=== PATIENT | male | born 1950 | race Caucasian/White ===

== ENCOUNTER 2020-01-22 16:36 | Inpatient (IN) | payer MEDICARE ==
[~2020-01-22] VITALS: Ht 177.8 cm; Wt 112.8 kg
[2020-01-22] VITALS (7 sets, daily range): BP systolic 148–248; BP diastolic 66–116
[~2020-01-22 16:36] MED LIST: AMLO10TA4 PO; AMLO5TAB4 PO; ASPI-482 PO; CLOP75TA57 PO; CYAN10002 IM; DILT120T4 PO; METO-247 PO; METO-269 PO; METO50TA6 PO; OMEG1CAP38 PO; OMEG300C PO; ONDA4TAB10 SL; OXYC1TAB15 PO; PANT20TA2 PO; PANT40TA77 PO; PRAV40TA2 PO; RIVA10TA PO; RIVA20TA2 PO; TAMS0.4C97 PO; VIT1CAPS44 PO
[2020-01-22] MEDS ORDERED: HEPARIN 25,000UTS/250ML PREMIX 250 ML IV PRN ×2 (17:00→17:30)
[2020-01-22] MEDS ORDERED: fentaNYL PF VIAL 100 MCG/2 ML VIAL IVP PRN (17:00)
[2020-01-22] MEDS ORDERED: HEPARIN for IV BOLUS 10,000 UNIT/10 ML VIAL. IV PRN ×2 (17:00→17:30)
[2020-01-22] MEDS ORDERED: HYDR12.58 PO (17:13)
[2020-01-22] MEDS ORDERED: METOPROLOL SUCC 24HR ER 100 MG TAB.ER.24H. PO SCH (17:30)
[2020-01-22] MEDS: hydroCHLOROthiazide 25 MG TABLET PO SCH (17:41)
[2020-01-22] MEDS: PANTOPRAZOLE 40 MG TABLET.DR. PO SCH (17:41)
[2020-01-22] MEDS: METOPROLOL SUCC 24HR ER 100 MG TAB.ER.24H. PO SCH (17:42)
[2020-01-22 17:48] LABS: PROTHROMBIN TIME PATIENT 13.8 SEC (11.7-14.0)
[2020-01-22] MEDS: NITROGLYCERIN PREMIX 250 ML IV PRN (18:13)
[2020-01-22] MEDS: ACETAMINOPHEN 325 MG TABLET. PO PRN (20:00)
[2020-01-22] MEDS: MORPHINE SULFATE 2 MG/ML VIAL. IV PRN ×2 (20:00→22:35)
[2020-01-22] MEDS ORDERED: FUROSEMIDE 40 MG/4 ML VIAL. IVP ONE (20:00)
[2020-01-22] MEDS: ALBUTEROL SULFATE 2.5 MG/3 ML NEBU. NEB PRN (21:28)
--- NOTE | 2020-01-22 22:42 | NUR ---
1900 Patient is experiencing 10/10 midsternal chest pain and 8/10 headache. Morphine given per JUL, relief to 4/10 chest pain. pt on nitro gtt, titrating to keep systolic below 150. will continue to monitor.
[2020-01-23] VITALS (18 sets, daily range): BP systolic 96–171; BP diastolic 45–80
[2020-01-23] MEDS ORDERED: HEPARIN for IV BOLUS 10,000 UNIT/10 ML VIAL. IV PRN (01:15)
[2020-01-23] MEDS ORDERED: HEPARIN 25,000UTS/250ML PREMIX 250 ML IV PRN (01:15)
[2020-01-23] MEDS: MORPHINE SULFATE 2 MG/ML VIAL. IV PRN ×7 (01:21→22:57)
[2020-01-23] MEDS: ALBUTEROL SULFATE 2.5 MG/3 ML NEBU. NEB PRN ×5 (01:53→20:05)
[2020-01-23] MEDS: ACETAMINOPHEN 325 MG TABLET. PO PRN (07:26)
[2020-01-23] MEDS: ANTI-COAG MONITOR BY PHARMACY. MC PRN (07:37)
[2020-01-23 07:49] LABS: HEMATOCRIT 27.4 % (39.0-53.0); HEMOGLOBIN 9.3 g/dL (13.0-17.5); RED BLOOD COUNT 2.45 x10^6/uL (4.30-5.70); RED CELL DISTRIBUTION WIDTH 14.6 % (11.5-14.5)
[2020-01-23 08:24] LABS: CALCIUM 8.4 mg/dL (8.5-10.1); CHOLESTEROL/HDL RATIO 3.6; CREATININE 2.1 mg/dL (0.7-1.3); GFR 31.7; POTASSIUM 3.8 mmol/L (3.5-5.1)
[2020-01-23] MEDS: hydroCHLOROthiazide 25 MG TABLET PO SCH (09:00)
[2020-01-23] MEDS: METOPROLOL SUCC 24HR ER 100 MG TAB.ER.24H. PO SCH (09:43)
[2020-01-23] MEDS: PANTOPRAZOLE 40 MG TABLET.DR. PO SCH (09:44)
--- NOTE | 2020-01-23 10:12 | HP ---
ADMIT DATE: HISTORY OF PRESENT ILLNESS: The patient is a 69-year-old male patient who was brought to the Emergency Room of [facility]. He actually came to the Emergency by his own private vehicle complaining of chest pain. According to him, his symptoms of weakness started about 6 months ago. He was very weak and tired, lack of energy about 4-5 days, had bronchitis and on Friday started having chest pain, mostly substernal that radiates to his right upper extremity. He stated that he has some nausea, but no vomiting. He is short of breath and diaphoretic. He rated his pain about 9/10 in severity. The pain has been constant. He apparently has had extensive cardiac history including coronary artery disease with stent deployment, atrial fibrillation as well as pacemaker placement. He did complain of dyspnea on exertion and orthopnea as well as paroxysmal nocturnal dyspnea and increased lower extremity swelling. He was basically extensively investigated in the Emergency Room, has had an EKG, which showed that the patient was in atrial fibrillation with a ventricular rate of 164 beats per minute, corrected QT interval of 408, no axis deviation, T-wave inversion in leads aVR and aVL, but no ST segment elevation. His portable chest x-ray showed that the patient has mild cardiomegaly, sided cardiac pacer identified. Faint airspace opacities identified in the basilar region consistent with atelectasis versus infiltrate. His lab work showed that his white cell count was normal at 8100, hemoglobin 10, hematocrit 30, MCV was extremely high at 116; however, platelets are extremely low at 41,000. His chemistry showed a serum sodium 135, potassium 4.3, chloride 102, bicarbonate 18, anion gap of 15, BUN of 42, creatinine 2, estimated GFR was 33 mL per minute, his glucose 131, calcium was 9, magnesium was 1.2. Total bilirubin, AST, ALT, alkaline phosphatase were normal. His first set of cardiac enzymes showed troponin to be 1.936. His beta natriuretic peptide was 4678. Total protein was 8.4, albumin was 3.5 and lipase was 226. TSH 1.506. The patient was at [facility] Emergency Room for a long time. His second troponin has risen up to 2.894 and the patient was started on heparin drip and eventually a bed became available and was transferred to [facility] to consult the medical reviewer. PAST MEDICAL HISTORY: Significant for hypertension, hyperlipidemia, paroxysmal atrial fibrillation, coronary artery disease, status post PCI with stent deployment to the left anterior descending artery, sick sinus syndrome, status post permanent pacemaker placement, has a history of DVT and PE, status post IVC filter. He is known to have factor V Leiden, syncopal episode, gastritis, esophagitis, hemorrhoids, GI bleed, TIA and superficial gastric ulcer. PAST SURGICAL HISTORY: Significant for permanent pacemaker placement, IVC filter placement and PCI with stent deployment, cholecystectomy, and left knee arthroscopic surgery. FAMILY HISTORY: Significant for hypertension, abdominal aortic aneurysm in his father and lung cancer in his mother. SOCIAL HISTORY: He is . He quit smoking about 3 years ago. Does not drink alcohol or use any drugs. 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 REVIEW OF SYSTEMS: As per history of present illness. PHYSICAL EXAMINATION: GENERAL: On arrival to the Emergency Room, he was somewhat tachypneic, but there was no pallor, jaundice, cyanosis or thyromegaly. No jugular venous distention, but bilateral lower extremity edema. VITAL SIGNS: His heart rate was 112, blood pressure was 180/95, his temperature was 98.1, respiratory rate 22, and oxygen saturation was 98% on room air. HEAD, EYES, EARS, NOSE AND THROAT: Showed normocephalic, atraumatic. NECK: Supple. HEART: Showed normal first and second heart sounds. No gallop, rub or murmur. CHEST: Shows central trachea, equal bilateral expansion, air entry, vesicular sounds with bilateral basal crepitation. ABDOMEN: Distended, soft, nontender. No guarding or rigidity. No organomegaly. All hernial orifices intact. Bowel sounds normal. NEUROLOGIC: He was awake, alert, responding appropriately. All cranial nerves intact. EXTREMITIES: He moves extremities without difficulty. LABORATORY DATA: His lab work in the Emergency Room showed the white cell count of 8100, hemoglobin 10, hematocrit 30, MCV 116, and a platelet count of 41,000. His serum sodium was 135, potassium 4.3, chloride 102, bicarbonate 18, anion gap of 15, BUN of 42, creatinine 2, estimated GFR was 33 mL per minute, his glucose 131, calcium was 9, magnesium was 1.2. Total bilirubin, AST, ALT, alkaline phosphatase were normal. His first troponin was 1.936. Second troponin was 2.894. His BNP was 4678. Total protein was 8.4, albumin was 3.5. Lipase was 226 and TSH was 1.506. PLAN: The patient was treated, started on heparin drip. His magnesium was also replenished and was transferred to [facility] to consult the cardiology team. We will obviously continue all his other medications and decide on further management accordingly. KOSTA BRAVO MD DR: FLORY/jm JOB#: [id number] / [id number]
--- NOTE | 2020-01-23 10:44 | EKG ---
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
--- NOTE | 2020-01-23 11:27 | PN ---
DATE: 01/23/2020 SUBJECTIVE: The patient is resting, almost flat in bed, in no apparent distress. His main complaint this morning was headache because of nitroglycerin drip. He denied any more chest pain; however, he is already on nitroglycerin drip and also has received morphine as well as Tylenol. PHYSICAL EXAMINATION: GENERAL: When I examined him, he looked well and was clearly in no apparent respiratory distress. No pallor, jaundice, cyanosis or thyromegaly. No jugular venous distention. No limb edema. VITAL SIGNS: His heart rate was 85, blood pressure 152/74, temperature was 98.8, respiratory rate was 20, and oxygen saturation was 94% on 2 liters of oxygen. HEAD, EYES, EARS, NOSE AND THROAT: Normocephalic, atraumatic. NECK: Supple. HEART: Showed normal first and second heart sounds. No gallop, rub or murmur. CHEST: Clear to auscultation. No crepitation or rhonchi. ABDOMEN: Distended, soft, nontender. No guarding or rigidity. No organomegaly. All hernial orifice intact. Bowel sounds normal. NEUROLOGIC: He was awake, alert, responding appropriately. All cranial nerves are intact. He moves extremities without difficulty. His intake and output was incompletely recorded. LABORATORY DATA: His lab work this morning showed a white cell count 6000, hemoglobin 9.3, hematocrit 27, MCV 112 and a platelet count of 27,000. His chemistry showed a serum sodium 137, potassium 3.8, chloride 102, bicarbonate 22, anion gap of 13, BUN 42, creatinine 2.1, estimated GFR was 31, glucose was 100, calcium was 8.4. Troponin was 2.973. Triglycerides were 170, total cholesterol 140 and LDL cholesterol 67, VLDL was 34, and HDL cholesterol was 39 and ratio was 3.6. His prothrombin time was 13.8, INR 1.1, aPTT was 44. ASSESSMENT: 1. Non-ST segment elevation myocardial infarction. 2. Congestive heart failure, probably acute on chronic diastolic congestive heart failure. 3. Coronary artery disease, status post PCI with stent deployment to the left anterior descending. 4. Hypertension. 5. Hyperlipidemia. 6. Atrial fibrillation with status post permanent pacemaker placement. 7. Has also sick sinus syndrome. 8. He is also known to have factor V Leiden with DVT and status post IVC filter placement and thrombocytopenia, it is worsening. 9. His platelet was 41,000 yesterday and this morning, it was down to 27,000 PLAN: My plan is to increase his morphine and discontinue heparin and also sent blood for heparin-induced thrombocytopenia. KOSTA BRAVO MD DR: FLORY/jm JOB#: [id number] / [id number]
[2020-01-23] MEDS ORDERED: MAGNESIUM SULFATE 2GM 50 ML IV ONE (13:15)
--- NOTE | 2020-01-23 14:51 | PDOC2 ---
CONSULT Date of Consult Date of Consult DATE: 01/23/20 TIME: 14:43 Reason for Consult Reason for Consult: NSTEMI Referring Physician Referring Physician: Dr. Santos Identification/Chief Complaint Chief Complaint Chest pain Source Source: Chart review, Patient History of Present Illness Reason for Visit: The patient is a 69-year-old male who was initially admitted at [facility] for chest discomfort. Patient has been having several weeks to several months of chest pressure. It has been mildly progressive. Initial EKG at [facility] showed no acute ST segment changes. Patient's troponin was 1.936. His pain was controlled and he was transferred to [facility] for further treatment and evaluation. The patient has an extensive cardiac history including previous stenting for coronary artery disease, a pacemaker for sick sinus syndrome, hypertension, hyperlipidemia, paroxysmal atrial fibrillation, PE and IVC filter. Additionally he has factor V Leyden deficiency. Initial chest x-ray showed no acute pulmonary processes with mild cardiomegaly. Initial platelet count was 41,000 which decreased to 27,000 on admission at [place]. His troponin has plateaued at 2 readings at 2.9. He is feeling better. Of note he has an allergy to contrast. Past Medical History Cardiovascular: AFIB, CAD, HTN, Syncope Pulmonary: Pulmonary embolus CENTRAL NERVOUS SYSTEM: TIA Heme/Onc: Iron deficiency Anemia, Other (Factor V Leyden deficiency) Renal/: Chronic renal insuff, Benign prostatic enlarg. Past Surgical History Past Surgical History: Pacemaker, Cholecystectomy, Other (Coronary stents) Family History Family History: Hypertension Social History Quit ALCOHOL: occassional Drugs: None Lives: Alone Domestic Violence: Neg Current Medications Current Medications Current Medications Diltiazem HCl (Cardizem 24hr Cd) 240 mg DAILY PO Last administered on 01/23/20at 09:43; Start 01/22/20 at 17:30 Metoprolol Succinate (Toprol Xl) 200 mg DAILY PO ; Start 01/22/20 at 17:30; Stop 01/22/20 at 17:34; Status DC Pantoprazole Sodium (Protonix) 40 mg DAILYAC PO Last administered on 01/23/20at 09:44; Start 01/22/20 at 17:30 Hydrochlorothiazide (Hydrodiuril) 25 mg DAILY PO Last administered on 01/22/20at 17:41; Start 01/22/20 at 17:30 Heparin Sodium/ Dextrose 250 ml @ 0 mls/hr CONT PRN IV PER PROTOCOL; Start 01/22/20 at 17:00; Status UNV Heparin Sodium (Porcine) (Heparin Sodium) 2,700 unit PRN Q6HRS PRN IV FOR UFH LEVEL LESS THAN 0.2; Start 01/22/20 at 17:00; Status Cancel Fentanyl Citrate (Fentanyl 2ml Vial) 50 mcg PRN Q2HR PRN IVP PAIN; Start 01/22/20 at 17:00; Status Cancel Heparin Sodium/ Dextrose 250 ml @ 13.08 mls/ hr CONT PRN IV PER PROTOCOL Last administered on 01/22/20at 17:49; Start 01/22/20 at 17:30; Stop 01/23/20 at 01:11; Status DC Heparin Sodium (Porcine) (Heparin Sodium) 2,700 unit PRN Q6HRS PRN IV FOR PTT < 40; Start 01/22/20 at 17:30; Status Cancel Metoprolol Succinate (Toprol Xl) 100 mg DAILY PO Last administered on 01/23/20at 09:43; Start 01/22/20 at 17:45 Morphine Sulfate (Morphine Sulfate) 2 mg PRN Q2HR PRN IV PAIN Last administered on 01/23/20at 07:26; Start 01/22/20 at 17:45; Stop 01/23/20 at 09:40; Status DC Nitroglycerin/ Dextrose 250 ml @ 1.5 mls/hr CONT PRN IV SEE I/O RECORD Last administered on 01/22/20at 18:13; Start 01/22/20 at 17:45 Furosemide (Lasix) 40 mg 1X ONCE IVP Last administered on 01/22/20at 19:57; Start 01/22/20 at 20:00; Stop 01/22/20 at 20:01; Status DC Acetaminophen (Tylenol) 650 mg PRN Q6HRS PRN PO HEADACHE Last administered on 01/23/20at 07:26; Start 01/22/20 at 19:45 Albuterol Sulfate (Ventolin Neb Soln) 2.5 mg PRN Q4HRS PRN NEB SHORTNESS OF BREATH Last administered on 01/23/20at 11:35; Start 01/22/20 at 21:15 Heparin Sodium/ Dextrose 250 ml @ 0 mls/hr CONT PRN IV PER PROTOCOL; Start 01/23/20 at 01:15 Heparin Sodium (Porcine) (Heparin Sodium) 2,750 unit PRN Q6HRS PRN IV FOR UFH LEVEL LESS THAN 0.2 Last administered on 01/23/20at 01:25; Start 01/23/20 at 01:15 Info (Anti-Coagulation Monitoring By Pharmacy) 1 each PRN DAILY PRN MC SEE COMMENTS Last administered on 01/23/20at 07:37; Start 01/23/20 at 07:45 Morphine Sulfate (Morphine Sulfate) 4 mg PRN Q2HR PRN IV PAIN Last administered on 01/23/20at 10:12; Start 01/23/20 at 09:45 Magnesium Sulfate 50 ml @ 25 mls/hr 1X ONCE IV ; Start 01/23/20 at 13:15; Stop 01/23/20 at 15:14 Active Scripts Active Xarelto (Rivaroxaban) 20 Mg Tablet 20 Mg PO DAILY Cardizem Tablet (Diltiazem Hcl) 120 Mg Tablet 240 Mg PO DAILY Reported Hydrochlorothiazide Tablet (Hydrochlorothiazide) 12.5 Mg Tablet 25 Mg PO DAILY Metoprolol Succinate ( Xl ) (Metoprolol Succinate) 100 Mg Tab.er.24h 200 Mg PO DAILY Allergies Allergies: Coded Allergies: iodine (Verified Allergy, Severe, DIFFICULTY BREATHING, 10/04/14) Iodinated Contrast Media - IV Dye (Verified Allergy, Intermediate, 06/30/15) NSAIDS (Non-Steroidal Anti-Inflamma (Verified Allergy, Intermediate, Itching, 10/04/14) fentanyl (Verified Adverse Reaction, Intermediate, nausea vomiting , 10/04/14) ROS General: YES: Fatigue Respiratory: YES: SOB with excertion Cardiovascular: yes Chest Pain Physical Exam General: No acute distress HEENT: Atraumatic Lungs: Clear to auscultation Heart: Regular rate Abdomen: Normal bowel sounds Vitals VITALS Vital Signs Date Time Temp Pulse Resp B/P (MAP) Pulse Ox O2 Delivery O2 Flow Rate FiO2 01/23/20 13:00 85 20 160/78 (105) 95 Nasal Cannula 4.0 01/23/20 11:00 98.4 98.4 Labs Labs Laboratory Tests Test 01/22/20 17:30 01/22/20 23:20 01/23/20 06:05 Prothrombin Time 13.8 SEC (11.7-14.0) Prothromb Time International Ratio 1.1 (0.8-1.1) Activated Partial Thromboplast Time 44 SEC (24-38) Heparin Anti-Xa Act, Unfractionated 0.19 IU/mL (0.30-0.70) 0.37 IU/mL (0.30-0.70) White Blood Count 6.0 x10^3/uL (4.0-11.0) Red Blood Count 2.42 x10^6/uL (4.30-5.70) Hemoglobin 9.3 g/dL (13.0-17.5) Hematocrit 27.4 % (39.0-53.0) Mean Corpuscular Volume 112 fL (79-100) Mean Corpuscular Hemoglobin 38 pg (25-35) Mean Corpuscular Hemoglobin Concent 34 g/dL (31-37) Red Cell Distribution Width 14.6 % (11.5-14.5) Platelet Count 27 x10^3/uL (140-400) Absolute Reticulocyte Count 0.030 x10^6/uL (0.020-0.120) Percent Reticulocyte Count 1.3 % (0.5-2.3) Immature Reticulocyte Fraction 0.48 (0.20-0.60) Sodium Level 137 mmol/L (136-145) Potassium Level 3.8 mmol/L (3.5-5.1) Chloride Level 102 mmol/L (98-107) Carbon Dioxide Level 22 mmol/L (21-32) Anion Gap 13 (6-14) Blood Urea Nitrogen 42 mg/dL (8-26) Creatinine 2.1 mg/dL (0.7-1.3) Estimated GFR (Cockcroft-Gault) 31.7 Glucose Level 100 mg/dL (70-99) Calcium Level 8.4 mg/dL (8.5-10.1) Magnesium Level 1.6 mg/dL (1.8-2.4) Iron Level 117 ug/dL (65-175) Total Iron Binding Capacity 443 ug/dL (250-450) Iron Saturation 26 % (15-34) Lactate Dehydrogenase 307 U/L (85-227) Troponin I Quantitative 2.973 ng/mL (0.000-0.055) Triglycerides Level 170 mg/dL (0-150) Cholesterol Level 140 mg/dL (0-200) LDL Cholesterol, Calculated 67 mg/dL (0-100) VLDL Cholesterol, Calculated 34 mg/dL (0-40) Non-HDL Cholesterol Calculated 101 mg/dL (0-129) HDL Cholesterol 39 mg/dL (40-60) Cholesterol/HDL Ratio 3.6 Laboratory Tests Test 01/22/20 17:30 01/22/20 23:20 01/23/20 06:05 Prothrombin Time 13.8 SEC (11.7-14.0) Prothromb Time International Ratio 1.1 (0.8-1.1) Activated Partial Thromboplast Time 44 SEC (24-38) Heparin Anti-Xa Act, Unfractionated 0.19 IU/mL (0.30-0.70) 0.37 IU/mL (0.30-0.70) White Blood Count 6.0 x10^3/uL (4.0-11.0) Red Blood Count 2.42 x10^6/uL (4.30-5.70) Hemoglobin 9.3 g/dL (13.0-17.5) Hematocrit 27.4 % (39.0-53.0) Mean Corpuscular Volume 112 fL (79-100) Mean Corpuscular Hemoglobin 38 pg (25-35) Mean Corpuscular Hemoglobin Concent 34 g/dL (31-37) Red Cell Distribution Width 14.6 % (11.5-14.5) Platelet Count 27 x10^3/uL (140-400) Absolute Reticulocyte Count 0.030 x10^6/uL (0.020-0.120) Percent Reticulocyte Count 1.3 % (0.5-2.3) Immature Reticulocyte Fraction 0.48 (0.20-0.60) Sodium Level 137 mmol/L (136-145) Potassium Level 3.8 mmol/L (3.5-5.1) Chloride Level 102 mmol/L (98-107) Carbon Dioxide Level 22 mmol/L (21-32) Anion Gap 13 (6-14) Blood Urea Nitrogen 42 mg/dL (8-26) Creatinine 2.1 mg/dL (0.7-1.3) Estimated GFR (Cockcroft-Gault) 31.7 Glucose Level 100 mg/dL (70-99) Calcium Level 8.4 mg/dL (8.5-10.1) Magnesium Level 1.6 mg/dL (1.8-2.4) Iron Level 117 ug/dL (65-175) Total Iron Binding Capacity 443 ug/dL (250-450) Iron Saturation 26 % (15-34) Lactate Dehydrogenase 307 U/L (85-227) Troponin I Quantitative 2.973 ng/mL (0.000-0.055) Triglycerides Level 170 mg/dL (0-150) Cholesterol Level 140 mg/dL (0-200) LDL Cholesterol, Calculated 67 mg/dL (0-100) VLDL Cholesterol, Calculated 34 mg/dL (0-40) Non-HDL Cholesterol Calculated 101 mg/dL (0-129) HDL Cholesterol 39 mg/dL (40-60) Cholesterol/HDL Ratio 3.6 Images Images Outside chest x-ray showed no acute changes. Assessment/Plan Assessment/Plan 1. Non-ST elevated myocardial infarction. Patient's pain has largely resolved. Troponin peak is at 2.9. Patient has associated heart failure with a BNP of 4678. He was initially treated with heparin but with a decrease in his platelet count from 41,000-27,000 his heparin has been held. Hematology evaluation has been requested. We will continue on present medications and premedicate the patient for contrast. Possible catheterization tomorrow based on clinical course. 2. Acute on chronic systolic heart failure. BNP of 4678. Patient is feeling better. We will continue present medications. 3. Thrombocytopenia. Platelet count of 27,000. History of factor V Leyden deficiency. Holding heparin. Hematology consult. Continue close monitor. 4. Hypertension. Reasonably controlled. Continue medical treatment. 5. Hyperlipidemia. Will check lab. 6. Sick sinus syndrome status post permanent pacemaker. Will interrogate the patient's device. 7. History of DVT and PE with an IVC filter. 8. Paroxysmal atrial fibrillation. Thank you for allowing us to participate in the care of your patient. DEEPA KELSEY MD Jan 23, 2020 14:51
[2020-01-23] MEDS ORDERED: predniSONE 10 MG TABLET PO ONE ×2 (15:00→22:00)
[2020-01-23] MEDS: ASPIRIN 325 MG TABLET PO SCH (16:18)
--- NOTE | 2020-01-23 19:50 | NUR ---
Pt sitting on side of bed assessment completed vss poc explained pt c/o pain mid chest and across shoulders pt also c/o not being able to take his lasix will medicate pt and resume care.Call light in reach.
[2020-01-24] VITALS (20 sets, daily range): BP systolic 118–186; BP diastolic 56–98
[2020-01-24] MEDS: MORPHINE SULFATE 2 MG/ML VIAL. IV PRN ×6 (02:47→21:02)
[2020-01-24] MEDS: PANTOPRAZOLE 40 MG TABLET.DR. PO SCH (06:27)
[2020-01-24 07:07] LABS: BASO % 0 % (0-3); EOS % 0 % (0-3); HEMATOCRIT 26.3 % (39.0-53.0); LYMPH % 24 % (24-48); MEAN CORPUSCULAR HEMOGLOBIN 39 pg (25-35); MEAN CORPUSCULAR HGB CONC 34 g/dL (31-37); MEAN CORPUSCULAR VOLUME 114 fL (79-100); MONO # 0.6 x10^3/uL (0.0-1.1); MONO % 14 % (0-9); NEUT # 2.7 x10^3/uL (1.8-7.7); NEUT % 62 % (31-73); PLATELET COUNT 28 x10^3/uL (140-400); RED BLOOD COUNT 2.32 x10^6/uL (4.30-5.70); RED CELL DISTRIBUTION WIDTH 14.5 % (11.5-14.5); WHITE BLOOD COUNT 4.4 x10^3/uL (4.0-11.0)
[2020-01-24] MEDS ORDERED: predniSONE 10 MG TABLET PO ONE (07:30)
[2020-01-24] MEDS: ALBUTEROL SULFATE 2.5 MG/3 ML NEBU. NEB PRN (08:08)
[2020-01-24] MEDS: METOPROLOL SUCC 24HR ER 100 MG TAB.ER.24H. PO SCH (08:36)
[2020-01-24] MEDS: hydroCHLOROthiazide 25 MG TABLET PO SCH (09:00)
[2020-01-24 09:07] LABS: CALCIUM 8.1 mg/dL (8.5-10.1); CREATININE 2.2 mg/dL (0.7-1.3)
[2020-01-24 09:25] LABS: POTASSIUM 4.8 mmol/L (3.5-5.1)
[2020-01-24] MEDS: HYDROcodone/APAP 5/325MG 1 TAB TABLET PO PRN ×2 (10:07→17:32)
--- NOTE | 2020-01-24 10:07 | PN ---
DATE: 01/24/2020 SUBJECTIVE: The patient is resting, slightly propped up in bed, complaining of headache, chest pain, shortness of breath. PHYSICAL EXAMINATION: GENERAL: When I examined him this morning, he looked well and was clearly in no apparent respiratory distress. No pallor, jaundice, cyanosis or thyromegaly. No jugular venous distention. No limb edema. VITAL SIGNS: Heart rate was 92, blood pressure was 186/98, temperature was 98.8, respiratory rate was 18 and oxygen saturation was 96% on room air. HEAD, EYES, EARS, NOSE, AND THROAT: Showed normocephalic, atraumatic. NECK: Supple. HEART: Normal first and second heart sounds. No gallop or murmur. CHEST: Showed central trachea, equal bilateral expansion, air entry, vesicular sounds with scattered bilateral rhonchi and bilateral basal crepitation. ABDOMEN: Distended, soft, nontender. NEUROLOGIC: He was awake, alert, responding appropriately. All his cranial nerves are intact. He moves extremities without difficulty. His intake over the last 24 hours was 960 and output was 1325. LABORATORY DATA: As of this morning, his serum sodium was 133, potassium 4.8, chloride 100, bicarbonate 21, anion gap of 12, BUN 46, creatinine 2.2, estimated GFR was 30 mL per minute, his glucose 157 and calcium was 8.1, magnesium 2. TSH is extremely low at 0.282. His white cell count was 4400, hemoglobin 9, hematocrit 26, MCV 114 and platelet count of 28,000. His prothrombin time, INR and aPTT are normal. I did order vitamin B12, the result of which is still pending at the time of this dictation. PLAN: To continue with nitroglycerin drip, continue with his other antihypertensive medication. I will add Lasix 40 mg IV once now, start him also on hydrocodone and perhaps arrange for CT scan of the head without contrast to make sure that he has not had any subarachnoid hemorrhage. KOSTA BRAVO MD DR: FLORY/jm JOB#: [id number] / [id number]
[2020-01-24 10:33] LABS: ANISOCYTOSIS SLIGHT; PLT ESTIMATE DECREASED (ADEQUATE); TEAR DROP CELLS FEW
[2020-01-24] MEDS: FUROSEMIDE 40 MG/4 ML VIAL. IVP SCH (10:48)
--- NOTE | 2020-01-24 11:39 | RAD ---
CT HEAD WO CONTRAST Date: 01/24/2020 9:48 AM Clinical Indication: Reason: severe headache , thrombocytopenia and was on heparin / Spl. Instructions: / History: Comparison: CT head 05/11/2015. Technique: 5 mm axial tomographic images were obtained of the head without contrast. These were viewed on brain and bone windows. One or more of the following dose reduction techniques were utilized: Automated exposure control (AEC), Adjustment of mA and/or kV according to patient size, Use of iterative reconstruction technique such as ASiR, CT scan done according to ALARA and image gently/image wisely Findings: Mild generalized cerebral and cerebellar volume loss. Mild nonspecific periventricular hypoattenuation, most commonly seen with chronic small vessel ischemic disease. Calcified atherosclerosis of the bilateral cavernous and paraclinoid internal carotid arteries and intracranial vertebral arteries. No intra- or extra-axial mass or fluid collection. No acute hemorrhage. The ventricles are normal in size, shape, and morphology. The orellana-white matter junction is normal. The subarachnoid cisterns are patent. The visualized paranasal sinuses are normal. The visualized portions of the orbits and globes are normal. The mastoid air cells are clear. The proofreader topogram shows no lytic lesion or fracture. Impression: No acute intracranial process. Mild cerebral volume loss. Mild chronic small vessel ischemic disease. Electronically signed by: Kurt Bhardwaj MD (01/24/2020 11:36 AM) [id number]
[2020-01-24] MEDS ORDERED: ALBUTEROL SULFATE 2.5 MG/3 ML NEBU. NEB SCH (12:00)
[2020-01-24] MEDS: ALBUTEROL SULFATE 2.5 MG/3 ML NEBU. NEB SCH ×3 (12:55→19:39)
--- NOTE | 2020-01-24 12:59 | PDOC2 ---
CONSULT Date of Consult Date of Consult DATE: 01/24/20 TIME: 12:47 Reason for Consult Reason for Consult: Pancytopenia Referring Physician Referring Physician: Dr. Gresham Identification/Chief Complaint Chief Complaint Chest pain Source Source: Chart review, Patient History of Present Illness Reason for Visit: Juarez Mcclain is a 69-year-old male with history of coronary artery disease who was admitted for further evaluation and management of chest pain. He was initially seen at [facility] due to similar symptoms and was found to have elevated troponin of 1.936. His initial EKG did not show any acute ST-T segment changes. His pain was controlled and he was transferred to [facility] for further treatment and evaluation. The patient has an extensive cardiac history including previous stenting for coronary artery disease, a pacemaker for sick sinus syndrome, hypertension, hyperlipidemia, paroxysmal atrial fibrillation, PE and IVC filter. Additionally he has factor V Leiden. Initial platelet count was 41,000 which decreased to 27,000 on admission at [place]. His troponin has plateaued at 2 readings at 2.9. He is feeling better. Patient reports a six-month history of progressive fatigue. He denies loss of appetite or loss of weight. He denies fever or chills or night sweats. He denies any dietary restrictions. He does report to being aware of a history of B12 deficiency. Denies hematemesis. He reports that he has been taking his anticoagulation every other day due to noticing bloody stools with daily anticoagulation therapy Past Medical History Cardiovascular: AFIB, CAD, HTN, Syncope Pulmonary: Pulmonary embolus CENTRAL NERVOUS SYSTEM: TIA Heme/Onc: Iron deficiency Anemia, Other (Factor V Leyden deficiency) Renal/: Chronic renal insuff, Benign prostatic enlarg. Past Surgical History Past Surgical History: Pacemaker, Cholecystectomy, Other (Coronary stents) Family History Family History: Hypertension Social History Quit ALCOHOL: occassional Drugs: None Lives: Alone Domestic Violence: Neg Current Medications Current Medications Current Medications Diltiazem HCl (Cardizem 24hr Cd) 240 mg DAILY PO Last administered on 01/24/20at 08:35; Start 01/22/20 at 17:30 Metoprolol Succinate (Toprol Xl) 200 mg DAILY PO ; Start 01/22/20 at 17:30; Stop 01/22/20 at 17:34; Status DC Pantoprazole Sodium (Protonix) 40 mg DAILYAC PO Last administered on 01/24/20at 06:27; Start 01/22/20 at 17:30 Hydrochlorothiazide (Hydrodiuril) 25 mg DAILY PO Last administered on 01/22/20at 17:41; Start 01/22/20 at 17:30 Heparin Sodium/ Dextrose 250 ml @ 0 mls/hr CONT PRN IV PER PROTOCOL; Start 01/22/20 at 17:00; Status UNV Heparin Sodium (Porcine) (Heparin Sodium) 2,700 unit PRN Q6HRS PRN IV FOR UFH LEVEL LESS THAN 0.2; Start 01/22/20 at 17:00; Status Cancel Fentanyl Citrate (Fentanyl 2ml Vial) 50 mcg PRN Q2HR PRN IVP PAIN; Start 01/22/20 at 17:00; Status Cancel Heparin Sodium/ Dextrose 250 ml @ 13.08 mls/ hr CONT PRN IV PER PROTOCOL Last administered on 01/22/20at 17:49; Start 01/22/20 at 17:30; Stop 01/23/20 at 01:11; Status DC Heparin Sodium (Porcine) (Heparin Sodium) 2,700 unit PRN Q6HRS PRN IV FOR PTT < 40; Start 01/22/20 at 17:30; Status Cancel Metoprolol Succinate (Toprol Xl) 100 mg DAILY PO Last administered on 01/24/20at 08:36; Start 01/22/20 at 17:45 Morphine Sulfate (Morphine Sulfate) 2 mg PRN Q2HR PRN IV PAIN Last administered on 01/23/20at 07:26; Start 01/22/20 at 17:45; Stop 01/23/20 at 09:40; Status DC Nitroglycerin/ Dextrose 250 ml @ 1.5 mls/hr CONT PRN IV SEE I/O RECORD Last administered on 01/22/20at 18:13; Start 01/22/20 at 17:45 Furosemide (Lasix) 40 mg 1X ONCE IVP Last administered on 01/22/20at 19:57; Start 01/22/20 at 20:00; Stop 01/22/20 at 20:01; Status DC Acetaminophen (Tylenol) 650 mg PRN Q6HRS PRN PO HEADACHE Last administered on 01/23/20at 07:26; Start 01/22/20 at 19:45 Albuterol Sulfate (Ventolin Neb Soln) 2.5 mg PRN Q4HRS PRN NEB SHORTNESS OF BREATH Last administered on 01/24/20at 08:08; Start 01/22/20 at 21:15; Stop at 09:27; Status DC Heparin Sodium/ Dextrose 250 ml @ 0 mls/hr CONT PRN IV PER PROTOCOL; Start 01/23/20 at 01:15 Heparin Sodium (Porcine) (Heparin Sodium) 2,750 unit PRN Q6HRS PRN IV FOR UFH LEVEL LESS THAN 0.2 Last administered on 01/23/20at 01:25; Start 01/23/20 at 01:15 Info (Anti-Coagulation Monitoring By Pharmacy) 1 each PRN DAILY PRN MC SEE COMMENTS Last administered on 01/23/20at 07:37; Start 01/23/20 at 07:45 Morphine Sulfate (Morphine Sulfate) 4 mg PRN Q2HR PRN IV PAIN Last administered on 01/24/20at 10:49; Start 01/23/20 at 09:45 Magnesium Sulfate 50 ml @ 25 mls/hr 1X ONCE IV Last administered on 01/23/20at 14:50; Start 01/23/20 at 13:15; Stop 01/23/20 at 15:14; Status DC Prednisone (Prednisone) 30 mg 1X ONCE PO Last administered on 01/23/20at 16:19; Start 01/23/20 at 15:00; Stop 01/23/20 at 15:01; Status DC Prednisone (Prednisone) 30 mg 1X ONCE PO Last administered on 01/23/20at 21:40; Start 01/23/20 at 22:00; Stop 01/23/20 at 22:01; Status DC Prednisone (Prednisone) 30 mg 1X ONCE PO Last administered on 01/24/20at 06:27; Start 01/24/20 at 07:30; Stop 01/24/20 at 07:31; Status DC Aspirin (Kenzie Aspirin) 325 mg DAILYWBKFT PO Last administered on 01/23/20at 16:18; Start 01/23/20 at 15:00 Albuterol Sulfate (Ventolin Neb Soln) 2.5 mg Q4HRS NEB ; Start 01/24/20 at 12:00; Status UNV Albuterol Sulfate (Ventolin Neb Soln) 2.5 mg RTQID NEB ; Start 01/24/20 at 12:00 Acetaminophen/ Hydrocodone Bitart (Lortab 5/325) 1 tab PRN Q4HRS PRN PO PAIN Last administered on 01/24/20at 10:07; Start 01/24/20 at 09:45 Furosemide (Lasix) 40 mg DAILY IVP Last administered on 01/24/20at 10:48; Start 01/24/20 at 11:00 Active Scripts Active Xarelto (Rivaroxaban) 20 Mg Tablet 20 Mg PO DAILY Cardizem Tablet (Diltiazem Hcl) 120 Mg Tablet 240 Mg PO DAILY Reported Hydrochlorothiazide Tablet (Hydrochlorothiazide) 12.5 Mg Tablet 25 Mg PO DAILY Metoprolol Succinate ( Xl ) (Metoprolol Succinate) 100 Mg Tab.er.24h 200 Mg PO DAILY Allergies Allergies: Coded Allergies: iodine (Verified Allergy, Severe, DIFFICULTY BREATHING, 10/04/14) Iodinated Contrast Media (Verified Allergy, Intermediate, 06/30/15) NSAIDS (Non-Steroidal Anti-Inflamma (Verified Allergy, Intermediate, Itc avtar, 10/04/14) fentanyl (Verified Adverse Reaction, Intermediate, nausea vomiting , 10/04/14) ROS General: YES: Fatigue; No: Chills, Night Sweats, Appetite PSYCHOLOGICAL ROS: No: Anxiety, Behavioral Disorder Eyes: No Blurry vision, No Decreased vision HEENT: No: Heacaches, Visual Changes ALLERGY AND IMMUNOLOGY: No: Nasal Congestion, Post Nasal Drip Hematological and Lymphatic: YES: Blood Clots, Brusing; No: Bleeding Problems, Night Sweats ENDOCRINE: No: Galactorrhea, Hair Pattern Changes Breast: No New/Changing Breast Lumps, No Nipple changes Respiratory: No: Cough, Hemoptysis Cardiovascular: yes Chest Pain; No Palpitations, No Paroxysmal Noc. Dyspnea Gastrointestinal: Yes Hematochezia; No Nausea, No Vomiting, No Abdominal Pain, No Diarrhea, No Constipation Genitourinary: No Dysuria, No Flank Pain Musculoskeletal: No Gait Disturbance Neurological: No Behavorial Changes Skin: No Dry Skin, No Eczema Physical Exam Physical Exam No cervical, axillary or inguinal lymphadenopathy. No palpable spleen General: Alert, Oriented X3 HEENT: Atraumatic, PERRLA Lungs: Clear to auscultation Heart: No murmurs, Other (Normal rate) Abdomen: Normal bowel sounds, Soft Extremities: No clubbing Skin: No rashes Neuro: Normal speech Psych/Mental Status: Mental status NL MUSCULOSKELETAL: No joint tenderness Vitals VITALS Vital Signs Date Time Temp Pulse Resp B/P (MAP) Pulse Ox O2 Delivery O2 Flow Rate FiO2 01/24/20 11:07 97 Nasal Cannula 2.0 01/24/20 10:24 98.7 66 18 162/74 (103) 98.7 Labs Labs Laboratory Tests Test 01/22/20 17:30 01/22/20 23:20 01/23/20 06:05 01/24/20 06:05 Prothrombin Time 13.8 SEC (11.7-14.0) Prothromb Time International Ratio 1.1 (0.8-1.1) Activated Partial Thromboplast Time 44 SEC (24-38) Heparin Anti-Xa Act, Unfractionated 0.19 IU/mL (0.30-0.70) 0.37 IU/mL (0.30-0.70) White Blood Count 6.0 x10^3/uL (4.0-11.0) 4.4 x10^3/uL (4.0-11.0) Red Blood Count 2.42 x10^6/uL (4.30-5.70) 2.32 x10^6/uL (4.30-5.70) Hemoglobin 9.3 g/dL (13.0-17.5) 9.0 g/dL (13.0-17.5) Hematocrit 27.4 % (39.0-53.0) 26.3 % (39.0-53.0) Mean Corpuscular Volume 112 fL (79-100) 114 fL (79-100) Mean Corpuscular Hemoglobin 38 pg (25-35) 39 pg (25-35) Mean Corpuscular Hemoglobin Concent 34 g/dL (31-37) 34 g/dL (31-37) Red Cell Distribution Width 14.6 % (11.5-14.5) 14.5 % (11.5-14.5) Platelet Count 27 x10^3/uL (140-400) 28 x10^3/uL (140-400) Absolute Reticulocyte Count 0.030 x10^6/uL (0.020-0.120) Percent Reticulocyte Count 1.3 % (0.5-2.3) Immature Reticulocyte Fraction 0.48 (0.20-0.60) Sodium Level 137 mmol/L (136-145) 133 mmol/L (136-145) Potassium Level 3.8 mmol/L (3.5-5.1) 4.8 mmol/L (3.5-5.1) Chloride Level 102 mmol/L (98-107) 100 mmol/L (98-107) Carbon Dioxide Level 22 mmol/L (21-32) 21 mmol/L (21-32) Anion Gap 13 (6-14) 12 (6-14) Blood Urea Nitrogen 42 mg/dL (8-26) 46 mg/dL (8-26) Creatinine 2.1 mg/dL (0.7-1.3) 2.2 mg/dL (0.7-1.3) Estimated GFR (Cockcroft-Gault) 31.7 30.0 Glucose Level 100 mg/dL (70-99) 157 mg/dL (70-99) Calcium Level 8.4 mg/dL (8.5-10.1) 8.1 mg/dL (8.5-10.1) Magnesium Level 1.6 mg/dL (1.8-2.4) 2.0 mg/dL (1.8-2.4) Iron Level 117 ug/dL (65-175) Total Iron Binding Capacity 443 ug/dL (250-450) Iron Saturation 26 % (15-34) Lactate Dehydrogenase 307 U/L (85-227) Troponin I Quantitative 2.973 ng/mL (0.000-0.055) Triglycerides Level 170 mg/dL (0-150) Cholesterol Level 140 mg/dL (0-200) LDL Cholesterol, Calculated 67 mg/dL (0-100) VLDL Cholesterol, Calculated 34 mg/dL (0-40) Non-HDL Cholesterol Calculated 101 mg/dL (0-129) HDL Cholesterol 39 mg/dL (40-60) Cholesterol/HDL Ratio 3.6 Neutrophils (%) (Auto) 62 % (31-73) Lymphocytes (%) (Auto) 24 % (24-48) Monocytes (%) (Auto) 14 % (0-9) Eosinophils (%) (Auto) 0 % (0-3) Basophils (%) (Auto) 0 % (0-3) Neutrophils # (Auto) 2.7 x10^3/uL (1.8-7.7) Lymphocytes # (Auto) 1.0 x10^3/uL (1.0-4.8) Monocytes # (Auto) 0.6 x10^3/uL (0.0-1.1) Eosinophils # (Auto) 0.0 x10^3/uL (0.0-0.7) Basophils # (Auto) 0.0 x10^3/uL (0.0-0.2) Platelet Estimate Decreased (ADEQUATE) Anisocytosis Slight Macrocytosis Mod Tear Drop Cells Few Ferritin 87 ng/mL (26-388) Vitamin B12 Level 303 pg/mL (247-911) Thyroid Stimulating Hormone (TSH) 0.282 uIU/mL (0.358-3.74) Laboratory Tests Test 01/24/20 06:05 White Blood Count 4.4 x10^3/uL (4.0-11.0) Red Blood Count 2.32 x10^6/uL (4.30-5.70) Hemoglobin 9.0 g/dL (13.0-17.5) Hematocrit 26.3 % (39.0-53.0) Mean Corpuscular Volume 114 fL (79-100) Mean Corpuscular Hemoglobin 39 pg (25-35) Mean Corpuscular Hemoglobin Concent 34 g/dL (31-37) Red Cell Distribution Width 14.5 % (11.5-14.5) Platelet Count 28 x10^3/uL (140-400) Neutrophils (%) (Auto) 62 % (31-73) Lymphocytes (%) (Auto) 24 % (24-48) Monocytes (%) (Auto) 14 % (0-9) Eosinophils (%) (Auto) 0 % (0-3) Basophils (%) (Auto) 0 % (0-3) Neutrophils # (Auto) 2.7 x10^3/uL (1.8-7.7) Lymphocytes # (Auto) 1.0 x10^3/uL (1.0-4.8) Monocytes # (Auto) 0.6 x10^3/uL (0.0-1.1) Eosinophils # (Auto) 0.0 x10^3/uL (0.0-0.7) Basophils # (Auto) 0.0 x10^3/uL (0.0-0.2) Platelet Estimate Decreased (ADEQUATE) Anisocytosis Slight Macrocytosis Mod Tear Drop Cells Few Sodium Level 133 mmol/L (136-145) Potassium Level 4.8 mmol/L (3.5-5.1) Chloride Level 100 mmol/L (98-107) Carbon Dioxide Level 21 mmol/L (21-32) Anion Gap 12 (6-14) Blood Urea Nitrogen 46 mg/dL (8-26) Creatinine 2.2 mg/dL (0.7-1.3) Estimated GFR (Cockcroft-Gault) 30.0 Glucose Level 157 mg/dL (70-99) Calcium Level 8.1 mg/dL (8.5-10.1) Magnesium Level 2.0 mg/dL (1.8-2.4) Ferritin 87 ng/mL (26-388) Vitamin B12 Level 303 pg/mL (247-911) Thyroid Stimulating Hormone (TSH) 0.282 uIU/mL (0.358-3.74) Assessment/Plan Assessment/Plan Assessment: NSTEMI Pancytopenia with macrocytosis History of B12 deficiency with now borderline B12 level Hematochezia Factor V Leiden with history of DVT/PE in 2014 status post IVC filter placement Coronary artery disease status post PCI Atrial fibrillation CKD stage III Recommendations: -I recommended and checked B12, copper level, SPEP, free kappa lambda light chains, iron studies, LDH and haptoglobin -Given borderline low B12 level I requested testing for methylmalonic acid -Recommend empiric B12 replacement therapy parenterally and oral iron supplementation -Would plan on checking folic acid as outpatient -Given suspicion for B12 deficiency, will defer bone marrow biopsy until B12 levels are replete as B12 deficiency would lead to findings of myelodysplasia on bone marrow -Evaluation and management of NSTEMI per cardiology -Consider GI evaluation when patient reports of hematochezia. May be pursued as outpatient -I recommended and patient was agreeable to following up as outpatient with repeat CBC in 2 weeks. Bone marrow biopsy may be considered at the time based on lab trends. Lawrence Lenz MD Medical Oncology/Hematology Ph: [phone] CHRISTIAN LENZ MD Jan 24, 2020 12:59
--- NOTE | 2020-01-24 13:22 | NUR ---
SS following for discharge planning. SS reviewed pt chart and discussed with pt RN. Pt is from home and is currently requiring oxygen. Pt has no home oxygen. Cardiology following. SS will continue to follow for discharge planning.
[2020-01-24] MEDS: ASPIRIN 325 MG TABLET PO SCH (13:44)
--- NOTE | 2020-01-24 16:59 | PDOC ---
PROGRESS NOTES Date of Service: DATE: 01/24/20 TIME: 16:56 Subjective Subjective Feeling better today. Denied any chest pain. Objective Objective Vital Signs Date Time Temp Pulse Resp B/P (MAP) Pulse Ox O2 Delivery O2 Flow Rate FiO2 01/24/20 16:12 100 124/62 (82) 01/24/20 14:51 98.6 18 94 Room Air 98.6 01/24/20 14:26 2.0 Intake and Output 01/24/20 07:00 Intake Total 1257 ml Output Total 1875 ml Balance -618 ml Intake Oral 1257 ml Output Urine Total 1875 ml Physical Exam Abdomen: Normal bowel sounds, Soft Heart: No murmurs, Other (Normal rate) Extremities: No clubbing General: Alert, Oriented X3 HEENT: Atraumatic, PERRLA Lungs: Clear to auscultation MUSCULOSKELETAL: No joint tenderness Neuro: Normal speech Psych/Mental Status: Mental status NL Skin: No rashes Assessment Assessment 1. Non-STEMI, in a patient with known history of coronary disease s/p PCI/stent to LAD in the past, presently chest pain-free. Plan for cardiac catheterization tomorrow if okay with hematology team. Continue current secondary prevention measures. 2. Hypertension: Controlled 3. SSS s/p PPM implantation, clinically stable. 4. Paroxysmal atrial fibrillation, presently in sinus rhythm. Patient on Xarelto as an outpatient but this has been held since admission. Resume post cardiac catheterization if okay with hematology team. 5. h/o DVT, factor V Leiden deficiency, on long-term anticoagulation 6. Pancytopenia: Being followed by hematology team Comment Review of Relevant I have reviewed the following items kolby (where applicable) has been applied. Labs Laboratory Tests Test 01/24/20 06:05 White Blood Count 4.4 x10^3/uL (4.0-11.0) Red Blood Count 2.32 x10^6/uL (4.30-5.70) Hemoglobin 9.0 g/dL (13.0-17.5) Hematocrit 26.3 % (39.0-53.0) Mean Corpuscular Volume 114 fL (79-100) Mean Corpuscular Hemoglobin 39 pg (25-35) Mean Corpuscular Hemoglobin Concent 34 g/dL (31-37) Red Cell Distribution Width 14.5 % (11.5-14.5) Platelet Count 28 x10^3/uL (140-400) Neutrophils (%) (Auto) 62 % (31-73) Lymphocytes (%) (Auto) 24 % (24-48) Monocytes (%) (Auto) 14 % (0-9) Eosinophils (%) (Auto) 0 % (0-3) Basophils (%) (Auto) 0 % (0-3) Neutrophils # (Auto) 2.7 x10^3/uL (1.8-7.7) Lymphocytes # (Auto) 1.0 x10^3/uL (1.0-4.8) Monocytes # (Auto) 0.6 x10^3/uL (0.0-1.1) Eosinophils # (Auto) 0.0 x10^3/uL (0.0-0.7) Basophils # (Auto) 0.0 x10^3/uL (0.0-0.2) Platelet Estimate Decreased (ADEQUATE) Anisocytosis Slight Macrocytosis Mod Tear Drop Cells Few Sodium Level 133 mmol/L (136-145) Potassium Level 4.8 mmol/L (3.5-5.1) Chloride Level 100 mmol/L (98-107) Carbon Dioxide Level 21 mmol/L (21-32) Anion Gap 12 (6-14) Blood Urea Nitrogen 46 mg/dL (8-26) Creatinine 2.2 mg/dL (0.7-1.3) Estimated GFR (Cockcroft-Gault) 30.0 Glucose Level 157 mg/dL (70-99) Calcium Level 8.1 mg/dL (8.5-10.1) Magnesium Level 2.0 mg/dL (1.8-2.4) Ferritin 87 ng/mL (26-388) Vitamin B12 Level 303 pg/mL (247-911) Thyroid Stimulating Hormone (TSH) 0.282 uIU/mL (0.358-3.74) Medications Current Medications Acetaminophen/ Hydrocodone Bitart (Lortab 5/325) 1 tab PRN Q4HRS PRN PO PAIN La st administered on 01/24/20at 10:07; Start 01/24/20 at 09:45 Albuterol Sulfate (Ventolin Neb Soln) 2.5 mg Q4HRS NEB ; Start 01/24/20 at 12:00; Status UNV Albuterol Sulfate (Ventolin Neb Soln) 2.5 mg RTQID NEB Last administered on 01/24/20at 12:55; Start 01/24/20 at 12:00 Furosemide (Lasix) 40 mg DAILY IVP Last administered on 01/24/20at 10:48; Start 01/24/20 at 11:00 Prednisone (Prednisone) 30 mg 1X ONCE PO Last administered on 01/23/20at 21:40; Start 01/23/20 at 22:00; Stop 01/23/20 at 22:01; Status DC Prednisone (Prednisone) 30 mg 1X ONCE PO Last administered on 01/24/20at 06:27; Start 01/24/20 at 07:30; Stop 01/24/20 at 07:31; Status DC Vitals/I & O Vital Sign - Last 24 Hours 01/23/20 01/23/20 01/23/20 01/23/20 19:26 19:46 19:50 20:00 Temp 98.3 98.3 Pulse 79 Resp 18 18 B/P (MAP) 149/76 (100) 154/72 (99) Pulse Ox 94 97 O2 Delivery Room Air Room Air Nasal Cannula O2 Flow Rate 4.0 4.0 01/23/20 01/23/20 01/23/20 01/23/20 20:08 20:19 21:00 22:00 Pulse 94 80 Resp 18 B/P (MAP) 149/74 (99) 142/68 (92) Pulse Ox 96 96 O2 Delivery Nasal Cannula Nasal Cannula O2 Flow Rate 2.0 2.0 01/23/20 01/23/20 01/23/20 01/23/20 22:57 23:00 23:09 23:27 Temp 98.3 98.3 Pulse 87 Resp 18 18 18 B/P (MAP) 96/45 (62) 142/68 (92) Pulse Ox 96 95 96 O2 Delivery Room Air Room Air Nasal Cannula O2 Flow Rate 2.0 4.0 01/24/20 01/24/20 01/24/20 01/24/20 01:00 01:32 02:00 02:47 Pulse 71 64 88 Resp 18 B/P (MAP) 171/79 (109) 148/68 (94) 163/56 (91) Pulse Ox 93 95 O2 Delivery Nasal Cannula 8/31/01/24/20 01/24/20 01/24/20 03:00 03:10 03:17 04:00 Temp 98.3 98.3 Pulse 98 91 72 Resp 18 16 B/P (MAP) 169/68 (101) 158/64 (95) 178/80 (112) Pulse Ox 95 95 O2 Delivery Room Air Nasal Cannula O2 Flow Rate 4.0 3.0 01/24/20 01/24/20 01/24/20 01/24/20 06:11 06:28 06:58 07:35 Temp 98.8 98.8 Pulse 92 Resp 18 18 18 B/P (MAP) 155/73 (100) Pulse Ox 97 96 96 O2 Delivery Room Air Nasal Cannula Nasal Cannula Nasal Cannula O2 Flow Rate 4.0 4.0 2.0 01/24/20 01/24/20 01/24/20 01/24/20 08:08 08:12 08:35 08:36 Pulse 84 88 88 B/P (MAP) 186/98 (127) 186/98 186/98 Pulse Ox 95 O2 Delivery Room Air 01/24/20 01/24/20 01/24/20 01/24/20 09:12 10:07 10:24 10:49 Temp 98.7 98.7 Pulse 80 66 Resp 18 B/P (MAP) 171/69 (103) 162/74 (103) Pulse Ox 95 97 97 O2 Delivery Nasal Cannula Room Air Nasal Cannula O2 Flow Rate 4.0 2.0 01/24/20 01/24/20 01/24/20 01/24/20 11:07 11:07 11:12 12:12 Pulse 74 80 B/P (MAP) 179/84 (115) 157/95 (115) Pulse Ox 97 97 O2 Delivery Nasal Cannula Nasal Cannula O2 Flow Rate 2.0 2.0 01/24/20 01/24/20 01/24/20 01/24/20 12:55 13:12 13:56 14:12 Pulse 62 72 B/P (MAP) 126/60 (82) 138/60 (86) Pulse Ox 96 96 O2 Delivery Nasal Cannula Nasal Cannula O2 Flow Rate 2.0 2.0 01/24/20 01/24/20 01/24/20 01/24/20 14:26 14:51 15:12 16:12 Temp 98.6 98.6 Pulse 58 64 100 Resp 18 B/P (MAP) 133/60 (84) 118/66 (83) 124/62 (82) Pulse Ox 96 94 O2 Delivery Nasal Cannula Room Air O2 Flow Rate 2.0 Intake and Output 01/23/20 01/23/20 01/24/20 15:00 23:00 07:00 Intake Total 380 ml 877 ml 0 ml Output Total 775 ml 600 ml 500 ml Balance -395 ml 277 ml -500 ml CORNELIO PORTILLO MD Jan 24, 2020 16:59
[2020-01-24] MEDS: NITROGLYCERIN PREMIX 250 ML IV PRN (19:40)
[2020-01-25] VITALS (21 sets, daily range): BP systolic 104–193; BP diastolic 50–100
[2020-01-25] MEDS: HYDROcodone/APAP 5/325MG 1 TAB TABLET PO PRN ×3 (02:26→23:58)
[2020-01-25] MEDS: MORPHINE SULFATE 2 MG/ML VIAL. IV PRN ×6 (02:58→21:15)
[2020-01-25] MEDS: PANTOPRAZOLE 40 MG TABLET.DR. PO SCH ×2 (05:50→13:50)
[2020-01-25 06:43] LABS: HEMATOCRIT 26.6 % (39.0-53.0); HEMOGLOBIN 9.2 g/dL (13.0-17.5); RED BLOOD COUNT 2.33 x10^6/uL (4.30-5.70); WHITE BLOOD COUNT 6.7 x10^3/uL (4.0-11.0)
[2020-01-25] MEDS: ALBUTEROL SULFATE 2.5 MG/3 ML NEBU. NEB SCH ×4 (07:48→19:31)
[2020-01-25] MEDS: hydroCHLOROthiazide 25 MG TABLET PO SCH (09:00)
--- NOTE | 2020-01-25 09:55 | PN ---
DATE: 01/25/2020 SUBJECTIVE: The patient is resting, slightly propped up in bed, in no apparent respiratory distress. He continued to have chest pain, continued on nitroglycerin drip. His platelet count continued to be low, in fact, it is only 27,000; however, the Cardiology team apparently planning to go ahead with cardiac catheterization. PHYSICAL EXAMINATION: GENERAL: When I examined him this morning, he was pale, but not jaundiced, no cyanosis or thyromegaly. No jugular venous distention. No limb edema. VITAL SIGNS: His heart rate was 82, blood pressure 154/84, temperature 97.9, respiratory rate 18, and oxygen saturation was 96% on 2 liters of oxygen. HEENT: Showed normocephalic, atraumatic. NECK: Supple. HEART: Normal first and second heart sounds. No gallop or murmur. CHEST: Clear to auscultation. No crepitation or rhonchi. ABDOMEN: Distended, soft, nontender. NEUROLOGIC: He was awake, alert, responding appropriately. All cranial nerves are intact. He moves extremities without difficulty. His intake over the last 24 hours was 1250, output was 1875. LABORATORY DATA: As of this morning, his white cell count was 6700, hemoglobin 9.2, hematocrit 27, MCV 114 and platelet count of 27,000. His chemistry showed a serum sodium of 133, potassium 4.8, chloride 100, bicarbonate 21, anion gap of 12, BUN 46, creatinine 2.2, estimated GFR was 30 mL per minute, his glucose 157, calcium was 8.1. His magnesium was 1.6. Serum iron, TIBC is elevated and his vitamin B12 is 303. TSH was 0.282. T3, T4, free T4 were ordered, but still are pending at the time of this dictation. ASSESSMENT: 1. Non-ST segment elevation myocardial infarction. The patient with known coronary artery disease, status post PCI with stent deployment to the left anterior descending in the past. 2. Hypertension, seems to be well controlled. 3. Sick sinus syndrome, status post permanent pacemaker implantation. 4. Paroxysmal atrial fibrillation, currently in sinus rhythm. The patient is on Xarelto. The patient has factor V Leiden and history of deep vein thrombosis for which he was on long-term anticoagulation in the form of Xarelto. Pancytopenia, questionable vitamin B12 deficiency, seen by the lithographic photographer. The patient also has chronic kidney disease, hyperlipidemia, acute on chronic diastolic congestive heart failure. PLAN: Obviously to continue to monitor his labs, review all his labs tomorrow morning and if he remains stable, we can discharge him home to be followed by the lithographic photographer as an outpatient. KOSTA BRAVO MD DR: FLORY/jm JOB#: [id number] / [id number]
[2020-01-25] MEDS ORDERED: IODIXANOL 320 MG/ML 100 ML VIAL. ONE (10:44)
[2020-01-25] MEDS ORDERED: HEPARIN for ARTERIAL LINE 0 ML ONE (10:44)
[2020-01-25] MEDS ORDERED: LIDOCAINE 1% PF 2 ML VIAL. ONE (10:44)
[2020-01-25] MEDS ORDERED: VERAPAMIL 5 MG/2 ML VIAL. ONE (10:47)
[2020-01-25] MEDS ORDERED: MIDAZOLAM HCL/PF 2 MG/2 ML VIAL. ONE ×2 (10:47→11:55)
[2020-01-25] MEDS ORDERED: diphenhydrAMINE 50 MG/ML VIAL ONE ×2 (10:47→10:52)
[2020-01-25] MEDS ORDERED: methylPREDNISolone SOD SUCC PF 125 MG/2 ML VIAL. ONE (10:47)
[2020-01-25] MEDS ORDERED: HEPARIN for IV BOLUS 10,000 UNIT/10 ML VIAL. ONE (10:47)
[2020-01-25] MEDS ORDERED: FAMOTIDINE 20 MG/2 ML VIAL ONE (10:47)
[2020-01-25] MEDS ORDERED: NITROGLYCERIN 200 MCG/2 ML SYRINGE FOR CATH/VASC LAB. ONE (10:48)
[2020-01-25] MEDS ORDERED: CYANOCOBALAMIN (VITAMIN B-12) 1,000 MCG/ML VIAL IM ONE (11:15)
[2020-01-25 11:21] LABS: CALCIUM 8.5 mg/dL (8.5-10.1); CREATININE 2.4 mg/dL (0.7-1.3); GFR 27.1
[2020-01-25] MEDS ORDERED: LIDOCAINE WITH 8.4% SOD BICARB 3 ML DISP.SYRIN. ONE (11:52)
[2020-01-25] MEDS ORDERED: MORPHINE SULFATE 10 MG/ML VIAL. ONE (11:54)
--- NOTE | 2020-01-25 12:00 | PDOC ---
PROGRESS NOTES Date of Service DATE: 01/25/20 TIME: 11:33 Subjective Subjective Patient was seen in a follow-up visit today. He continues to report chest pain that is central. He denies associated shortness of breath. He denies nausea vomiting. He denies dysuria or flank pain. He denies fever or chills. He den ies diarrhea or hematemesis or melena. Objective Objective Vital Signs Date Time Temp Pulse Resp B/P (MAP) Pulse Ox O2 Delivery O2 Flow Rate FiO2 01/25/20 10:47 97.8 66 18 157/74 (101) 95 Room Air 97.8 01/25/20 09:39 2.0 Intake and Output 01/25/20 06:59 Intake Total 1700 ml Output Total 2350 ml Balance -650 ml Intake Oral 1700 ml Output Urine Total 2350 ml Physical Exam Abdomen: Normal bowel sounds, Soft Heart: Regular rate Extremities: No clubbing, No cyanosis General: Alert, Oriented X3 HEENT: Atraumatic, PERRLA Lungs: Clear to auscultation MUSCULOSKELETAL: No swelling Neck: Supple Neuro: Normal speech Psych/Mental Status: Mental status NL Skin: No rashes Assessment Assessment NSTEMI Pancytopenia with macrocytosis History of B12 deficiency with now borderline B12 level Hematochezia Factor V Leiden with history of DVT/PE in 2014 status post IVC filter placement Coronary artery disease status post PCI Atrial fibrillation CKD stage III Plan Plan of Care -I recommended and checked B12, copper level, SPEP, free kappa lambda light chains, iron studies, LDH and haptoglobin -Given borderline low B12 level I requested testing for methylmalonic acid. Started empiric B12 IM 1000 mcg daily. -Recommend oral iron supplementation -Would plan on checking folic acid as outpatient. Testing not allowed by hospital formulary. -I discussed the patient's current presentation with chest pain and NSTEMI with Dr. Izquierdo with cardiology. Given persistent chest pain, cardiac catheterization is being planned. I would recommend 1 unit of platelet transfusion before procedure with a goal of maintaining platelets above 50,000. -I discussed with the patient that while bone marrow findings may be confounded by the presence of B12 deficiency, given plans for PCI and antiplatelet therapy in the near future, it would be beneficial to exclude alternative hematologic diagnoses so as to prognosticate recovery of platelet counts. I would therefore recommend a bone marrow biopsy at this time. This will be performed today in interventional radiology. Would plan on repeating in 3 months interval if it does show dysplasia consistent with B12 deficiency -He would be at high bleeding risk given thrombocytopenia and I would recommend deferred PCI or single agent antiplatelet therapy with close monitoring for bleeding if critical lesion is noted on cardiac catheterization. -Consider GI evaluation when patient reports of hematochezia. May be pursued as outpatient Lawrence Lenz MD Medical Oncology/Hematology Ph: [phone] Comment Review of Relevant I have reviewed the following items kolby (where applicable) has been applied. Labs Laboratory Tests Test 01/24/20 06:05 01/25/20 05:30 White Blood Count 4.4 x10^3/uL (4.0-11.0) 6.7 x10^3/uL (4.0-11.0) Red Blood Count 2.32 x10^6/uL (4.30-5.70) 2.33 x10^6/uL (4.30-5.70) Hemoglobin 9.0 g/dL (13.0-17.5) 9.2 g/dL (13.0-17.5) Hematocrit 26.3 % (39.0-53.0) 26.6 % (39.0-53.0) Mean Corpuscular Volume 114 fL (79-100) 114 fL (79-100) Mean Corpuscular Hemoglobin 39 pg (25-35) 39 pg (25-35) Mean Corpuscular Hemoglobin Concent 34 g/dL (31-37) 34 g/dL (31-37) Red Cell Distribution Width 14.5 % (11.5-14.5) 15.0 % (11.5-14.5) Platelet Count 28 x10^3/uL (140-400) 27 x10^3/uL (140-400) Neutrophils (%) (Auto) 62 % (31-73) Lymphocytes (%) (Auto) 24 % (24-48) Monocytes (%) (Auto) 14 % (0-9) Eosinophils (%) (Auto) 0 % (0-3) Basophils (%) (Auto) 0 % (0-3) Neutrophils # (Auto) 2.7 x10^3/uL (1.8-7.7) Lymphocytes # (Auto) 1.0 x10^3/uL (1.0-4.8) Monocytes # (Auto) 0.6 x10^3/uL (0.0-1.1) Eosinophils # (Auto) 0.0 x10^3/uL (0.0-0.7) Basophils # (Auto) 0.0 x10^3/uL (0.0-0.2) Platelet Estimate Decreased (ADEQUATE) Anisocytosis Slight Macrocytosis Mod Tear Drop Cells Few Haptoglobin 247 mg/dL (32-363) Sodium Level 133 mmol/L (136-145) 134 mmol/L (136-145) Potassium Level 4.8 mmol/L (3.5-5.1) 4.0 mmol/L (3.5-5.1) Chloride Level 100 mmol/L (98-107) 99 mmol/L (98-107) Carbon Dioxide Level 21 mmol/L (21-32) 23 mmol/L (21-32) Anion Gap 12 (6-14) 12 (6-14) Blood Urea Nitrogen 46 mg/dL (8-26) 54 mg/dL (8-26) Creatinine 2.2 mg/dL (0.7-1.3) 2.4 mg/dL (0.7-1.3) Estimated GFR (Cockcroft-Gault) 30.0 27.1 Glucose Level 157 mg/dL (70-99) 161 mg/dL (70-99) Calcium Level 8.1 mg/dL (8.5-10.1) 8.5 mg/dL (8.5-10.1) Magnesium Level 2.0 mg/dL (1.8-2.4) 1.9 mg/dL (1.8-2.4) Ferritin 87 ng/mL (26-388) Vitamin B12 Level 303 pg/mL (247-911) Thyroid Stimulating Hormone (TSH) 0.282 uIU/mL (0.358-3.74) Troponin I Quantitative 1.344 ng/mL (0.000-0.055) Laboratory Tests Test 01/25/20 05:30 White Blood Count 6.7 x10^3/uL (4.0-11.0) Red Blood Count 2.33 x10^6/uL (4.30-5.70) Hemoglobin 9.2 g/dL (13.0-17.5) Hematocrit 26.6 % (39.0-53.0) Mean Corpuscular Volume 114 fL (79-100) Mean Corpuscular Hemoglobin 39 pg (25-35) Mean Corpuscular Hemoglobin Concent 34 g/dL (31-37) Red Cell Distribution Width 15.0 % (11.5-14.5) Platelet Count 27 x10^3/uL (140-400) Sodium Level 134 mmol/L (136-145) Potassium Level 4.0 mmol/L (3.5-5.1) Chloride Level 99 mmol/L (98-107) Carbon Dioxide Level 23 mmol/L (21-32) Anion Gap 12 (6-14) Blood Urea Nitrogen 54 mg/dL (8-26) Creatinine 2.4 mg/dL (0.7-1.3) Estimated GFR (Cockcroft-Gault) 27.1 Glucose Level 161 mg/dL (70-99) Calcium Level 8.5 mg/dL (8.5-10.1) Magnesium Level 1.9 mg/dL (1.8-2.4) Troponin I Quantitative 1.344 ng/mL (0.000-0.055) Medications Current Medications Diltiazem HCl (Cardizem 24hr Cd) 240 mg DAILY PO Last administered on 01/24/20at 08:35; Start 01/22/20 at 17:30 Metoprolol Succinate (Toprol Xl) 200 mg DAILY PO ; Start 01/22/20 at 17:30; Stop 01/22/20 at 17:34; Status DC Pantoprazole Sodium (Protonix) 40 mg DAILYAC PO Last administered on 01/25/20at 05:50; Start 01/22/20 at 17:30 Hydrochlorothiazide (Hydrodiuril) 25 mg DAILY PO Last administered on 01/22/20at 17:41; Start 01/22/20 at 17:30 Heparin Sodium/ Dextrose 250 ml @ 0 mls/hr CONT PRN IV PER PROTOCOL; Start 01/22/20 at 17:00; Status UNV Heparin Sodium (Porcine) (Heparin Sodium) 2,700 unit PRN Q6HRS PRN IV FOR UFH LEVEL LESS THAN 0.2; Start 01/22/20 at 17:00; Status Cancel Fentanyl Citrate (Fentanyl 2ml Vial) 50 mcg PRN Q2HR PRN IVP PAIN; Start 01/22/20 at 17:00; Status Cancel Heparin Sodium/ Dextrose 250 ml @ 13.08 mls/ hr CONT PRN IV PER PROTOCOL Last administered on 01/22/20at 17:49; Start 01/22/20 at 17:30; Stop 01/23/20 at 01:11; Status DC Heparin Sodium (Porcine) (Heparin Sodium) 2,700 unit PRN Q6HRS PRN IV FOR PTT < 40; Start 01/22/20 at 17:30; Status Cancel Metoprolol Succinate (Toprol Xl) 100 mg DAILY PO Last administered on 01/24/20at 08:36; Start 01/22/20 at 17:45 Morphine Sulfate (Morphine Sulfate) 2 mg PRN Q2HR PRN IV PAIN Last administered on 01/23/20at 07:26; Start 01/22/20 at 17:45; Stop 01/23/20 at 09:40; Status DC Nitroglycerin/ Dextrose 250 ml @ 1.5 mls/hr CONT PRN IV SEE I/O RECORD Last administered on 01/24/20at 19:40; Start 01/22/20 at 17:45 Furosemide (Lasix) 40 mg 1X ONCE IVP Last administered on 01/22/20at 19:57; Start 01/22/20 at 20:00; Stop 01/22/20 at 20:01; Status DC Acetaminophen (Tylenol) 650 mg PRN Q6HRS PRN PO HEADACHE Last administered on 01/23/20at 07:26; Start 01/22/20 at 19:45 Albuterol Sulfate (Ventolin Neb Soln) 2.5 mg PRN Q4HRS PRN NEB SHORTNESS OF BREATH Last administered on 01/24/20at 08:08; Start 01/22/20 at 21:15; Stop 01/24/20 at 09:27; Status DC Heparin Sodium/ Dextrose 250 ml @ 0 mls/hr CONT PRN IV PER PROTOCOL; Start 01/23/20 at 01:15 Heparin Sodium (Porcine) (Heparin Sodium) 2,750 unit PRN Q6HRS PRN IV FOR UFH LEVEL LESS THAN 0.2 Last administered on 01/23/20at 01:25; Start 01/23/20 at 01:15 Info (Anti-Coagulation Monitoring By Pharmacy) 1 each PRN DAILY PRN MC SEE COMMENTS Last administered on 01/23/20at 07:37; Start 01/23/20 at 07:45 Morphine Sulfate (Morphine Sulfate) 4 mg PRN Q2HR PRN IV PAIN Last administered on 01/25/20at 09:09; Start 01/23/20 at 09:45 Magnesium Sulfate 50 ml @ 25 mls/hr 1X ONCE IV Last administered on 01/23/20at 14:50; Start 01/23/20 at 13:15; Stop 01/23/20 at 15:14; Status DC Prednisone (Prednisone) 30 mg 1X ONCE PO Last administered on 01/23/20at 16:19; Start 01/23/20 at 15:00; Stop 01/23/20 at 15:01; Status DC Prednisone (Prednisone) 30 mg 1X ONCE PO Last administered on 01/23/20at 21:40; Start 01/23/20 at 22:00; Stop 01/23/20 at 22:01; Status DC Prednisone (Prednisone) 30 mg 1X ONCE PO Last administered on 01/24/20at 06:27; Start 01/24/20 at 07:30; Stop 01/24/20 at 07:31; Status DC Aspirin (Black Raven and Stag Aspirin) 325 mg DAILYWBKFT PO Last administered on 01/24/20at 13:44; Start 01/23/20 at 15:00 Albuterol Sulfate (Ventolin Neb Soln) 2.5 mg Q4HRS NEB ; Start 01/24/20 at 12:00; Status UNV Albuterol Sulfate (Ventolin Neb Soln) 2.5 mg RTQID NEB Last administered on 01/25/20at 07:48; Start 01/24/20 at 12:00 Acetaminophen/ Hydrocodone Bitart (Lortab 5/325) 1 tab PRN Q4HRS PRN PO PAIN Last administered on 01/25/20at 08:38; Start 01/24/20 at 09:45 Furosemide (Lasix) 40 mg DAILY IVP Last administered on 01/24/20at 10:48; Start 01/24/20 at 11:00 Iodixanol (Visipaque 320) 100 ml STK-MED ONCE .ROUTE ; Start 01/25/20 at 10:44; Stop 01/25/20 at 10:45; Status DC Lidocaine HCl (Xylocaine-Mpf 1% 2ml Vial) 2 ml STK-MED ONCE .ROUTE ; Start 01/25/20 at 10:44; Stop 01/25/20 at 10:45; Status DC Heparin Sodium/ Sodium Chloride 500 ml @ As Directed STK-MED ONCE .ROUTE ; Start 01/25/20 at 10:44; Stop 01/25/20 at 10:45; Status DC Methylprednisolone Sodium Succinate (SOLU-Medrol 125MG VIAL) 125 mg STK-MED ONCE .ROUTE ; Start 01/25/20 at 10:47; Stop 01/25/20 at 10:47; Status DC Midazolam HCl (Versed) 2 mg STK-MED ONCE .ROUTE ; Start 01/25/20 at 10:47; Stop 01/25/20 at 10:47; Status DC Heparin Sodium (Porcine) (Heparin Sodium) 10,000 unit STK-MED ONCE .ROUTE ; Start 01/25/20 at 10:47; Stop 01/25/20 at 10:47; Status DC Verapamil HCl (Verapamil) 5 mg STK-MED ONCE .ROUTE ; Start 01/25/20 at 10:47; Stop 01/25/20 at 10:47; Status DC Famotidine (Pepcid Vial) 20 mg STK-MED ONCE .ROUTE ; Start 01/25/20 at 10:47; Stop 01/25/20 at 10:48; Status DC Diphenhydramine HCl (Benadryl) 50 mg STK-MED ONCE .ROUTE ; Start 01/25/20 at 10:47; Stop 01/25/20 at 10:48; Status DC Nitroglycerin (Nitroglycerin) 200 mcg STK-MED ONCE .ROUTE ; Start 01/25/20 at 10:48; Stop 01/25/20 at 10:48; Status DC Diphenhydramine HCl (Benadryl) 50 mg STK-MED ONCE .ROUTE ; Start 01/25/20 at 10:52; Stop 01/25/20 at 10:52; Status DC Cyanocobalamin (Vitamin B-12) 1,000 mcg DAILY ONCE IM ; Start 01/25/20 at 11:15; Stop 01/25/20 at 11:16; Status DC Active Scripts Active Xarelto (Rivaroxaban) 20 Mg Tablet 20 Mg PO DAILY Cardizem Tablet (Diltiazem Hcl) 120 Mg Tablet 240 Mg PO DAILY Reported Hydrochlorothiazide Tablet (Hydrochlorothiazide) 12.5 Mg Tablet 25 Mg PO DAILY Metoprolol Succinate ( Xl ) (Metoprolol Succinate) 100 Mg Tab.er.24h 200 Mg PO DAILY Vitals/I & O Vital Sign - Last 24 Hours 01/24/20 01/24/20 01/24/20 01/24/20 12:12 12:55 13:12 13:56 Pulse 80 62 B/P (MAP) 157/95 (115) 126/60 (82) Pulse Ox 96 96 O2 Delivery Nasal Cannula Nasal Cannula O2 Flow Rate 2.0 2.0 01/24/20 01/24/20 01/24/20 01/24/20 14:12 14:26 14:51 15:12 Temp 98.6 98.6 Pulse 72 58 64 Resp 18 B/P (MAP) 138/60 (86) 133/60 (84) 118/66 (83) Pulse Ox 96 94 O2 Delivery Nasal Cannula Room Air O2 Flow Rate 2.0 01/24/20 01/24/20 01/24/20 01/24/20 16:12 17:07 17:32 17:33 Pulse 100 B/P (MAP) 124/62 (82) Pulse Ox 97 97 97 O2 Delivery Room Air Nasal Cannula Nasal Cannula O2 Flow Rate 2.0 2.0 01/24/20 01/24/20 01/24/20 01/24/20 18:03 18:32 19:28 19:30 Temp 98.4 98.4 Pulse 79 Resp 18 18 B/P (MAP) 145/59 (87) Pulse Ox 97 96 93 O2 Delivery Nasal Cannula Room Air Room Air Nasal Cannula O2 Flow Rate 2.0 4.0 01/24/20 01/24/20 01/24/20 01/24/20 19:40 21:02 21:32 22:41 Temp 98.2 98.2 Pulse 80 Resp 18 18 18 B/P (MAP) 158/75 (102) Pulse Ox 94 96 92 95 O2 Delivery Room Air Room Air Room Air Room Air 01/24/20 01/25/20 01/25/20 01/25/20 23:43 00:05 02:26 02:58 Pulse 66 Resp 18 18 18 B/P (MAP) 155/66 (95) Pulse Ox 96 100 97 O2 Delivery Nasal Cannula Nasal Cannula Nasal Cannula O2 Flow Rate 2.0 2.0 01/25/20 01/25/20 01/25/20 01/25/20 03:13 03:26 03:26 04:12 Temp 98.0 98.0 Pulse 96 Resp 18 18 18 B/P (MAP) 104/50 (68) Pulse Ox 99 96 96 O2 Delivery Room Air Nasal Cannula Nasal Cannula O2 Flow Rate 2.0 2.0 01/25/20 01/25/20 01/25/20 01/25/20 05:50 06:20 07:00 07:35 Temp 97.9 97.9 Pulse 82 Resp 18 18 18 B/P (MAP) 154/84 (107) Pulse Ox 96 97 96 O2 Delivery Nasal Cannula Nasal Cannula Room Air Nasal Cannula O2 Flow Rate 2.0 2.0 2.0 01/25/20 01/25/20 01/25/20 01/25/20 07:49 08:38 09:09 09:39 Pulse Ox 96 96 96 95 O2 Delivery Nasal Cannula Nasal Cannula Nasal Cannula Nasal Cannula O2 Flow Rate 2.0 2.0 2.0 2.0 01/25/20 01/25/20 09:39 10:47 Temp 97.8 97.8 Pulse 66 Resp 18 B/P (MAP) 157/74 (101) Pulse Ox 95 95 O2 Delivery Nasal Cannula Room Air O2 Flow Rate 2.0 Intake and Output 01/24/20 01/24/20 01/25/20 14:59 22:59 06:59 Intake Total 0 ml 900 ml 800 ml Output Total 750 ml 900 ml 700 ml Balance -750 ml 0 ml 100 ml Justifications for Admission Other Justification CHRISTIAN LENZ MD Jan 25, 2020 12:00
[2020-01-25] MEDS ORDERED: MORPHINE SULFATE 10 MG/ML VIAL. IV ONE (12:15)
[2020-01-25] MEDS ORDERED: MIDAZOLAM HCL/PF 2 MG/2 ML VIAL. IV ONE (12:15)
[2020-01-25] MEDS ORDERED: LIDOCAINE WITH 8.4% SOD BICARB 3 ML DISP.SYRIN. IJ ONE (12:15)
--- NOTE | 2020-01-25 12:49 | PDOC2 ---
CONSULT Date of Consult Date of Consult DATE: 01/25/20 TIME: 12:49 Reason for Consult Reason for Consult: ALEJANDRO , plan for [facility] tomorrow Identification/Chief Complaint Chief Complaint " I want to get cath tomorrow" Source Source: Chart review, Patient History of Present Illness Reason for Visit: Patient is a 69-year-old male who went to [facility] with c/o chest pain. His symptoms of weakness started about 6 months ago, but felt very weak, tired, lack of energy about 4-5 days prior to going to the ER He had bronchitis and on Friday started having chest pain, rating 9/10, mostly substernal that radiating to his right upper extremity. He also reported some nausea, but no vomiting. He was short of breath and diaphoretic. He has a Hx of CAD with Stent, atrial fibrillation and pacemaker placement. He also noted Increase in LE swelling and also felt puffiness on his face well as paroxysmal nocturnal dyspnea and increased lower extremity swelling. He was transferred to [facility], admitted on 01/23/2020 On review of labs was found to have Low Hgb and low Platelets , Hem/Onc consulted. He Underwent BM Biopsy earlier today Currently he is eating lunch, denies any CP or SOB at rest . Denies any urinary Complaints . He reports he required uretheral dilation from infancy upto 32 years of age No complaints since then. He is not aware of CKD or any other Kidney problems . Denies use of NSAIDs or OTC health supplements He has been on HCTZ at home, never on Lasix but feels it helped with his swelling significantly since hospitalization . He states he was on PEDRITO-I in the past, dced by Max WHEELER- Not sure when and why . Denies any N/V/D at resent. No f/c Past Medical History Cardiovascular: AFIB, CAD, HTN, Syncope Pulmonary: Pulmonary embolus CENTRAL NERVOUS SYSTEM: TIA Heme/Onc: Iron deficiency Anemia, Other (Factor V Leyden deficiency) Renal/: Chronic renal insuff, Benign prostatic enlarg. Past Surgical History Past Surgical History Significant for permanent pacemaker placement, IVC filter placement and PCI with stent deployment, cholecystectomy, and left knee arthroscopic surgery. Past Surgical History: Pacemaker, Cholecystectomy, Other (Coronary stents) Family History Family History Significant for hypertension, abdominal aortic aneurysm in his father and lung cancer in his mother. Family History: Hypertension Social History Social History He is . He quit smoking about 3 years ago. Does not drink alcohol or use any drugs. 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 Quit ALCOHOL: occassional Drugs: None Lives: Alone Domestic Violence: Neg Current Medications Current Medications Current Medications Diltiazem HCl (Cardizem 24hr Cd) 240 mg DAILY PO Last administered on 01/24/20at 08:35; Start 01/22/20 at 17:30 Metoprolol Succinate (Toprol Xl) 200 mg DAILY PO ; Start 01/22/20 at 17:30; Stop 01/22/20 at 17:34; Status DC Pantoprazole Sodium (Protonix) 40 mg DAILYAC PO Last administered on 01/25/20at 05:50; Start 01/22/20 at 17:30 Hydrochlorothiazide (Hydrodiuril) 25 mg DAILY PO Last administered on 01/22/20at 17:41; Start 01/22/20 at 17:30 Heparin Sodium/ Dextrose 250 ml @ 0 mls/hr CONT PRN IV PER PROTOCOL; Start 01/22/20 at 17:00; Status UNV Heparin Sodium (Porcine) (Heparin Sodium) 2,700 unit PRN Q6HRS PRN IV FOR UFH LEVEL LESS THAN 0.2; Start 01/22/20 at 17:00; Status Cancel Fentanyl Citrate (Fentanyl 2ml Vial) 50 mcg PRN Q2HR PRN IVP PAIN; Start 01/21 at 17:00; Status Cancel Heparin Sodium/ Dextrose 250 ml @ 13.08 mls/ hr CONT PRN IV PER PROTOCOL Last administered on 01/22/20at 17:49; Start 01/22/20 at 17:30; Stop 01/23/20 at 01:11; Status DC Heparin Sodium (Porcine) (Heparin Sodium) 2,700 unit PRN Q6HRS PRN IV FOR PTT < 40; Start 01/22/20 at 17:30; Status Cancel Metoprolol Succinate (Toprol Xl) 100 mg DAILY PO Last administered on 01/24/20at 08:36; Start 01/22/20 at 17:45 Morphine Sulfate (Morphine Sulfate) 2 mg PRN Q2HR PRN IV PAIN Last administered on 01/23/20at 07:26; Start 01/22/20 at 17:45; Stop 01/23/20 at 09:40; Status DC Nitroglycerin/ Dextrose 250 ml @ 1.5 mls/hr CONT PRN IV SEE I/O RECORD Last administered on 01/24/20at 19:40; Start 01/22/20 at 17:45 Furosemide (Lasix) 40 mg 1X ONCE IVP Last administered on 01/22/20at 19:57; Start 01/22/20 at 20:00; Stop 01/22/20 at 20:01; Status DC Acetaminophen (Tylenol) 650 mg PRN Q6HRS PRN PO HEADACHE Last administered on 01/23/20at 07:26; Start 01/22/20 at 19:45 Albuterol Sulfate (Ventolin Neb Soln) 2.5 mg PRN Q4HRS PRN NEB SHORTNESS OF BREATH Last administered on 01/24/20at 08:08; Start 01/22/20 at 21:15; Stop 01/24/20 at 09:27; Status DC Heparin Sodium/ Dextrose 250 ml @ 0 mls/hr CONT PRN IV PER PROTOCOL; Start 01/23/20 at 01:15 Heparin Sodium (Porcine) (Heparin Sodium) 2,750 unit PRN Q6HRS PRN IV FOR UFH LEVEL LESS THAN 0.2 Last administered on 01/23/20at 01:25; Start 01/23/20 at 01:15 Info (Anti-Coagulation Monitoring By Pharmacy) 1 each PRN DAILY PRN MC SEE COMMENTS Last administered on 01/23/20at 07:37; Start 01/23/20 at 07:45 Morphine Sulfate (Morphine Sulfate) 4 mg PRN Q2HR PRN IV PAIN Last administered on 01/25/20at 11:37; Start 01/23/20 at 09:45 Magnesium Sulfate 50 ml @ 25 mls/hr 1X ONCE IV Last administered on 01/23/20at 14:50; Start 01/23/20 at 13:15; Stop 01/23/20 at 15:14; Status DC Prednisone (Prednisone) 30 mg 1X ONCE PO Last administered on 01/23/20at 16:19; Start 01/23/20 at 15:00; Stop 01/23/20 at 15:01; Status DC Prednisone (Prednisone) 30 mg 1X ONCE PO Last administered on 01/23/20at 21:40; Start 01/23/20 at 22:00; Stop 01/23/20 at 22:01; Status DC Prednisone (Prednisone) 30 mg 1X ONCE PO Last administered on 01/24/20at 06:27; Start 01/24/20 at 07:30; Stop 01/24/20 at 07:31; Status DC Aspirin (Kenzie Aspirin) 325 mg DAILYWBKFT PO Last administered on 01/24/20at 13:44; Start 01/23/20 at 15:00 Albuterol Sulfate (Ventolin Neb Soln) 2.5 mg Q4HRS NEB ; Start 01/24/20 at 12:00; Status UNV Albuterol Sulfate (Ventolin Neb Soln) 2.5 mg RTQID NEB Last administered on 01/25/20at 07:48; Start 01/24/20 at 12:00 Acetaminophen/ Hydrocodone Bitart (Lortab 5/325) 1 tab PRN Q4HRS PRN PO PAIN Last administered on 01/25/20at 08:38; Start 01/24/20 at 09:45 Furosemide (Lasix) 40 mg DAILY IVP Last administered on 01/24/20at 10:48; Start 01/24/20 at 11:00 Iodixanol (Visipaque 320) 100 ml STK-MED ONCE .ROUTE ; Start 01/25/20 at 10:44; Stop 01/25/20 at 10:45; Status DC Lidocaine HCl (Xylocaine-Mpf 1% 2ml Vial) 2 ml STK-MED ONCE .ROUTE ; Start 01/25/20 at 10:44; Stop 01/25/20 at 10:45; Status DC Heparin Sodium/ Sodium Chloride 0 ml @ As Directed STK-MED ONCE .ROUTE ; Start 01/25/20 at 10:44; Stop 01/25/20 at 10:45; Status DC Methylprednisolone Sodium Succinate (SOLU-Medrol 125MG VIAL) 125 mg STK-MED ONCE .ROUTE ; Start 01/25/20 at 10:47; Stop 01/25/20 at 10:47; Status DC Midazolam HCl (Versed) 2 mg STK-MED ONCE .ROUTE ; Start 01/25/20 at 10:47; Stop 01/25/20 at 10:47; Status DC Heparin Sodium (Porcine) (Heparin Sodium) 10,000 unit STK-MED ONCE .ROUTE ; Start 01/25/20 at 10:47; Stop 01/25/20 at 10:47; Status DC Verapamil HCl (Verapamil) 5 mg STK-MED ONCE .ROUTE ; Start 01/25/20 at 10:47; Stop 01/25/20 at 10:47; Status DC Famotidine (Pepcid Vial) 20 mg STK-MED ONCE .ROUTE ; Start 01/25/20 at 10:47; Stop 01/25/20 at 10:48; Status DC Diphenhydramine HCl (Benadryl) 50 mg STK-MED ONCE .ROUTE ; Start 01/25/20 at 10:47; Stop 01/25/20 at 10:48; Status DC Nitroglycerin (Nitroglycerin) 200 mcg STK-MED ONCE .ROUTE ; Start 01/25/20 at 10:48; Stop 01/25/20 at 10:48; Status DC Diphenhydramine HCl (Benadryl) 50 mg STK-MED ONCE .ROUTE ; Start 01/25/20 at 10:52; Stop 01/25/20 at 10:52; Status DC Cyanocobalamin (Vitamin B-12) 1,000 mcg DAILY ONCE IM ; Start 01/25/20 at 11:15; Stop 01/25/20 at 11:16; Status DC Lidocaine HCl (Buffered Lidocaine 1%) 3 ml STK-MED ONCE .ROUTE ; Start 01/25/20 at 11:52; Stop 01/25/20 at 11:53; Status DC Morphine Sulfate (Morphine Sulfate) 10 mg STK-MED ONCE .ROUTE ; Start 01/25/20 at 11:54; Stop 01/25/20 at 11:54; Status DC Midazolam HCl (Versed) 2 mg STK-MED ONCE .ROUTE ; Start 01/25/20 at 11:55; Stop 01/25/20 at 11:55; Status DC Lidocaine HCl (Buffered Lidocaine 1%) 3 ml 1X ONCE IJ Last administered on 01/25/20at 12:21; Start 01/25/20 at 12:15; Stop 01/25/20 at 12:16; Status DC Midazolam HCl (Versed) 2 mg 1X ONCE IV Last administered on 01/25/20at 12:17; Start 01/25/20 at 12:15; Stop 01/25/20 at 12:16; Status DC Morphine Sulfate (Morphine Sulfate) 10 mg 1X ONCE IV Last administered on 01/25/20at 12:17; Start 01/25/20 at 12:15; Stop 01/25/20 at 12:16; Status DC Active Scripts Active Xarelto (Rivaroxaban) 20 Mg Tablet 20 Mg PO DAILY Cardizem Tablet (Diltiazem Hcl) 120 Mg Tablet 240 Mg PO DAILY Reported Hydrochlorothiazide Tablet (Hydrochlorothiazide) 12.5 Mg Tablet 25 Mg PO DAILY Metoprolol Succinate ( Xl ) (Metoprolol Succinate) 100 Mg Tab.er.24h 200 Mg PO DAILY Allergies Allergies: Coded Allergies: iodine (Verified Allergy, Severe, DIFFICULTY BREATHING, 10/04/14) Iodinated Contrast Media (Verified Allergy, Intermediate, 06/30/15) NSAIDS (Non-Steroidal Anti-Inflamma (Verified Allergy, Intermediate, Itching, 10/04/14) fentanyl (Verified Adverse Reaction, Intermediate, nausea vomiting , 10/04/14) ROS Review of System Per HPI Physical Exam Physical Exam General- NAD, sitting up in bed eating lunch, just back from BM biopsy HEENT: OM moist Neck Supple Lungs : diminished bases), Non labored Heart: RRR Abdomen: Soft N/T, Obese Extremities: No Calf Tenderness,trace bilateral LE edema Neurology: alert, oriented, grossly normal Skin No Rash No crandall, No CVA or SP tenderness Vital Signs Vital Signs Date Time Temp Pulse Resp B/P (MAP) Pulse Ox O2 Delivery O2 Flow Rate FiO2 01/25/20 12:29 89 15 95 Nasal Cannula 2.0 01/25/20 12:27 155/80 (105) 01/25/20 10:47 97.8 97.8 Assessment & Plan ALEJANDRO- ATN/Cardiorenal/Hypotensive Non Oliguric, On IV Lasix per cardiology E-Lytes stable , Monitor , supportive care Risk of THAI higher due to ALEJANDRO, On IV Lasix, Unable to aggressively Hydrate Discussed with Patient the risks 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 S/P BMBx earlier today CAD: Hx of stent in the past SSS with PPM PAFIB: Currently in SR . Hx of DVT: on home xarelto HTN: controlled, HCTZ, Metoprolol at home, Not on PEDRITO-I/ARB recently Acute CHF with possible diastolic dysfunction: improved Labs Labs Laboratory Tests Test 01/24/20 06:05 01/25/20 05:30 White Blood Count 4.4 x10^3/uL (4.0-11.0) 6.7 x10^3/uL (4.0-11.0) Red Blood Count 2.32 x10^6/uL (4.30-5.70) 2.33 x10^6/uL (4.30-5.70) Hemoglobin 9.0 g/dL (13.0-17.5) 9.2 g/dL (13.0-17.5) Hematocrit 26.3 % (39.0-53.0) 26.6 % (39.0-53.0) Mean Corpuscular Volume 114 fL (79-100) 114 fL (79-100) Mean Corpuscular Hemoglobin 39 pg (25-35) 39 pg (25-35) Mean Corpuscular Hemoglobin Concent 34 g/dL (31-37) 34 g/dL (31-37) Red Cell Distribution Width 14.5 % (11.5-14.5) 15.0 % (11.5-14.5) Platelet Count 28 x10^3/uL (140-400) 27 x10^3/uL (140-400) Neutrophils (%) (Auto) 62 % (31-73) Lymphocytes (%) (Auto) 24 % (24-48) Monocytes (%) (Auto) 14 % (0-9) Eosinophils (%) (Auto) 0 % (0-3) Basophils (%) (Auto) 0 % (0-3) Neutrophils # (Auto) 2.7 x10^3/uL (1.8-7.7) Lymphocytes # (Auto) 1.0 x10^3/uL (1.0-4.8) Monocytes # (Auto) 0.6 x10^3/uL (0.0-1.1) Eosinophils # (Auto) 0.0 x10^3/uL (0.0-0.7) Basophils # (Auto) 0.0 x10^3/uL (0.0-0.2) Platelet Estimate Decreased (ADEQUATE) Anisocytosis Slight Macrocytosis Mod Tear Drop Cells Few Haptoglobin 247 mg/dL (32-363) Sodium Level 133 mmol/L (136-145) 134 mmol/L (136-145) Potassium Level 4.8 mmol/L (3.5-5.1) 4.0 mmol/L (3.5-5.1) Chloride Level 100 mmol/L (98-107) 99 mmol/L (98-107) Carbon Dioxide Level 21 mmol/L (21-32) 23 mmol/L (21-32) Anion Gap 12 (6-14) 12 (6-14) Blood Urea Nitrogen 46 mg/dL (8-26) 54 mg/dL (8-26) Creatinine 2.2 mg/dL (0.7-1.3) 2.4 mg/dL (0.7-1.3) Estimated GFR (Cockcroft-Gault) 30.0 27.1 Glucose Level 157 mg/dL (70-99) 161 mg/dL (70-99) Calcium Level 8.1 mg/dL (8.5-10.1) 8.5 mg/dL (8.5-10.1) Magnesium Level 2.0 mg/dL (1.8-2.4) 1.9 mg/dL (1.8-2.4) Ferritin 87 ng/mL (26-388) Vitamin B12 Level 303 pg/mL (247-911) Thyroid Stimulating Hormone (TSH) 0.282 uIU/mL (0.358-3.74) Troponin I Quantitative 1.344 ng/mL (0.000-0.055) Laboratory Tests Test 01/25/20 05:30 White Blood Count 6.7 x10^3/uL (4.0-11.0) Red Blood Count 2.33 x10^6/uL (4.30-5.70) Hemoglobin 9.2 g/dL (13.0-17.5) Hematocrit 26.6 % (39.0-53.0) Mean Corpuscular Volume 114 fL (79-100) Mean Corpuscular Hemoglobin 39 pg (25-35) Mean Corpuscular Hemoglobin Concent 34 g/dL (31-37) Red Cell Distribution Width 15.0 % (11.5-14.5) Platelet Count 27 x10^3/uL (140-400) Sodium Level 134 mmol/L (136-145) Potassium Level 4.0 mmol/L (3.5-5.1) Chloride Level 99 mmol/L (98-107) Carbon Dioxide Level 23 mmol/L (21-32) Anion Gap 12 (6-14) Blood Urea Nitrogen 54 mg/dL (8-26) Creatinine 2.4 mg/dL (0.7-1.3) Estimated GFR (Cockcroft-Gault) 27.1 Glucose Level 161 mg/dL (70-99) Calcium Level 8.5 mg/dL (8.5-10.1) Magnesium Level 1.9 mg/dL (1.8-2.4) Troponin I Quantitative 1.344 ng/mL (0.000-0.055) Review All relevant outside records, renal labs, imaging studies, telemetry/EKG's were reviewed. ILIR KINCAID MD Jan 25, 2020 12:49
--- NOTE | 2020-01-25 13:16 | RAD ---
CT-guided bone marrow biopsy. 01/25/2020 11:13 AM Indication: Pancytopenia Discussion: The risks and benefits of the procedure, including but not limited to, bleeding and infection were discussed patient. Informed consent was obtained. The patient was brought to the CT scanner and placed in the prone position. A timeout procedure was performed. Maxillofacial Pathology CT imaging of the pelvis demonstrated left ilium amenable to bone marrow biopsy. The overlying soft tissues were prepped and draped using maximum sterile barrier technique. 1% lidocaine without epinephrine was administered for local anesthesia. Under intermittent CT guidance, an OncControl needle was advanced into the bone marrow of the left iliac crest. 2 Aspirates and 1 core biopsy samples were obtained. Samples were delivered to pathology was present at the time of procedure. The needle was removed and manual pressure held to achieve hemostasis. No immediate complications were identified. The procedure was performed under conscious sedation including continuous cardiopulmonary monitoring via dedicated sedation nurse. Sedation time: 20 minutes Impression: Successful CT-guided bone marrow biopsy of the left iliac crest . PQRS Compliance Statement: One or more of the following individualized dose reduction techniques were utilized for this examination: 1. Automated exposure control 2. Adjustment of the mA and/or kV according to patient size 3. Use of iterative reconstruction technique Impression: 1. CT-guided bone marrow aspiration and biopsy as described PQRS Compliance Statement: One or more of the following individualized dose reduction techniques were utilized for this examination: 1. Automated exposure control 2. Adjustment of the mA and/or kV according to patient size 3. Use of iterative reconstruction technique
[2020-01-25] MEDS: METOPROLOL SUCC 24HR ER 100 MG TAB.ER.24H. PO SCH (13:51)
[2020-01-25] MEDS: FUROSEMIDE 40 MG/4 ML VIAL. IVP SCH (13:51)
[2020-01-25] MEDS: ASPIRIN 325 MG TABLET PO SCH (13:51)
--- NOTE | 2020-01-25 14:17 | NUR ---
SS following up with discharge planning. SS reviewed pt chart and discussed with pt RN. Pt is currently requiring oxygen. Pt has no home oxygen. Pt had Bone Marrow Biopsy today. Pt on Nitro drip. Pt scheduled for cardiac cath tomorrow. SS will continue to follow for discharge planning.
[2020-01-25 15:12] LABS: KAPPA FREE 57.4 mg/L (3.3-19.4); KAPPA LAMBDA RATIO 1.37 (0.26-1.65); LAMBDA FREE 41.9 mg/L (5.7-26.3)
--- NOTE | 2020-01-25 15:29 | PDOC ---
BRIE FUCHS GUEST SERVICES ATTENDANT 01/25/20 1529: CARDIO Progress Notes Date and Time Date of Service 01/25/2020 Time of Evaluation 1030 Subjective Subjective: No Chest Pain, No shortness of breath, No Palpitations Vitals Vitals Vital Signs Date Time Temp Pulse Resp B/P (MAP) Pulse Ox O2 Delivery O2 Flow Rate FiO2 01/25/20 15:15 95 Nasal Cannula 2.0 01/25/20 13:51 88 153/77 01/25/20 12:29 15 01/25/20 10:47 97.8 97.8 Weight Weight [ ] Input and Output Intake and Output Intake and Output 01/25/20 07:00 Intake Total 1700 ml Output Total 2350 ml Balance -650 ml Intake Oral 1700 ml Output Urine Total 2350 ml Laboratory Labs Laboratory Tests Test 01/25/20 05:30 White Blood Count 6.7 x10^3/uL (4.0-11.0) Red Blood Count 2.33 x10^6/uL (4.30-5.70) Hemoglobin 9.2 g/dL (13.0-17.5) Hematocrit 26.6 % (39.0-53.0) Mean Corpuscular Volume 114 fL (79-100) Mean Corpuscular Hemoglobin 39 pg (25-35) Mean Corpuscular Hemoglobin Concent 34 g/dL (31-37) Red Cell Distribution Width 15.0 % (11.5-14.5) Platelet Count 27 x10^3/uL (140-400) Sodium Level 134 mmol/L (136-145) Potassium Level 4.0 mmol/L (3.5-5.1) Chloride Level 99 mmol/L (98-107) Carbon Dioxide Level 23 mmol/L (21-32) Anion Gap 12 (6-14) Blood Urea Nitrogen 54 mg/dL (8-26) Creatinine 2.4 mg/dL (0.7-1.3) Estimated GFR (Cockcroft-Gault) 27.1 Glucose Level 161 mg/dL (70-99) Calcium Level 8.5 mg/dL (8.5-10.1) Magnesium Level 1.9 mg/dL (1.8-2.4) Troponin I Quantitative 1.344 ng/mL (0.000-0.055) Physical Exam HEENT: Neck Supple W Full Motion Chest: Symmetric LUNGS: Other (diminished bases) Heart: RRR (SR with intermittent pacing) Abdomen: Soft N/T Extremities: No Calf Tenderness, Other (1+ bilatera LE pitting edema) Neurology: alert, oriented, follow commands Assessment Assessment 1. NSTEMI: peaked trop at 2.9 with typical features. 2. Severe thrombocytopenia with hx of factor V leiden mutation?: Hematology following. w/u pending. BMBx pending PLT at 27 3. CAD: past stent 4. SSS with PPM in situ: stable 5. PAFIB: maintaining SR 6. Hx of DVT: on home xarelto 7. Pancytopenia: w/u ongoing 8. HTN: controlled 9. HLP 10. ALEJANDRO vs CKD 11. Acute CHF with possible diastolic dysfunction: improved Recommendations 1. PLT transfusion prior to C tomorrow. Will prep for iodine contrast allergy. Continue NTG drip 2. Lasix therapy. Consult nephrology 3. Secondary prevention measures. Continue current BP regimen and reeval for any changes pending [facility]. No ACEi or ARB at this time. Xarelto on hold. 4. TTE Justicifation of Admission Dx: Justifications for Admission: Justification of Admission Dx: Yes CORNELIO PORTILLO MD 01/25/209: CARDIO Progress Notes Assessment Assessment Patient seen and examined. Agree with FILTERATION OPERATOR's assessment and plan. Options discussed with Hematology team - appreciate their input Plan for bone marrow biopsy today and cardiac cath to risk stratify NSTEMI and intervene on critical lesions if necessary tomorrow We will pretreat for dye allergy and transfuse platelets prior to procedure BRIE FUCHS APRN Jan 25, 2020 15:29 CORNELIO PORTILLO MD Jan 25, 2020 21:19
[2020-01-25] MEDS ORDERED: predniSONE 10 MG TABLET PO ONE ×2 (17:00→23:59)
--- NOTE | 2020-01-25 19:25 | NUR ---
Pt in bed assessment completed pt bp elevated 191/71 poc explained to pt reoriented pt c/o domínguez pt agreed to allow pumper head to be on just for a rhythm strip and then off. Call light in reach bed alarm set will resume care and continue to monitor pt. Addendum: 01/25/20 at 6064 by Frederick Kaye RN Above note wrote on wrong pt.
--- NOTE | 2020-01-25 19:35 | NUR ---
Assessment completed vss poc explained pt stated his pain is 5/10 and request pain medicine will resume care and continue to monitor pt.
[2020-01-26] VITALS (23 sets, daily range): BP systolic 101–184; BP diastolic 47–106
[2020-01-26] MEDS: MORPHINE SULFATE 2 MG/ML VIAL. IV PRN ×4 (00:18→09:58)
[2020-01-26] MEDS: ALBUTEROL SULFATE 2.5 MG/3 ML NEBU. NEB SCH ×4 (07:16→20:53)
[2020-01-26] MEDS: hydroCHLOROthiazide 25 MG TABLET PO SCH (07:24)
[2020-01-26] MEDS ORDERED: diphenhydrAMINE 50 MG/ML VIAL IVP ONE (08:00)
[2020-01-26] MEDS ORDERED: FAMOTIDINE 20 MG/2 ML VIAL IVP ONE (08:00)
[2020-01-26] MEDS ORDERED: methylPREDNISolone SOD SUCC PF 125 MG/2 ML VIAL. IV ONE (08:00)
[2020-01-26 08:31] LABS: HEMATOCRIT 25.9 % (39.0-53.0); HEMOGLOBIN 8.7 g/dL (13.0-17.5); RED BLOOD COUNT 2.27 x10^6/uL (4.30-5.70); RED CELL DISTRIBUTION WIDTH 14.4 % (11.5-14.5); WHITE BLOOD COUNT 4.4 x10^3/uL (4.0-11.0)
[2020-01-26 08:50] LABS: ALBUMIN 3.2 g/dL (3.4-5.0); ALBUMIN/GLOBULIN RATIO 0.7 (1.0-1.7); CALCIUM 8.6 mg/dL (8.5-10.1); CREATININE 2.8 mg/dL (0.7-1.3); GFR 22.7; POTASSIUM 4.7 mmol/L (3.5-5.1); TOTAL BILIRUBIN 0.5 mg/dL (0.2-1.0)
--- NOTE | 2020-01-26 09:08 | PDOC ---
DATE OF SERVICE DATE: 01/26/20 TIME: 09:07 SUBJECTIVE ROS No complaints this am, Not on O2 He is scheduled for LHC today. Discussed with him again the risks of Contrast Pt understands and wants to go ahead with Cath OBJECTIVE Vital Signs Vital Signs Date Time Temp Pulse Resp B/P (MAP) Pulse Ox O2 Delivery O2 Flow Rate FiO2 01/26/20 08:35 97.5 74 18 159/62 97.5 01/26/20 07:16 95 Nasal Cannula 2.0 I & 0 Intake and Output 01/26/20 07:00 Intake Total 1300 ml Output Total 2125 ml Balance -825 ml Intake Oral 1300 ml Output Urine Total 2125 ml PHYSICAL EXAM Physical Exam General- NAD, HEENT: OM moist Neck Supple Lungs : diminished bases), Non labored Heart: RRR Abdomen: Soft N/T, Obese Extremities: No Calf Tenderness,trace bilateral LE edema Neurology: alert, oriented, grossly normal Skin No Rash No crandall, No CVA or SP tenderness DIAGNOSIS/ASSESSMENT Assessment & Plan ALEJANDRO- ATN/Cardiorenal/Hypotensive Non Oliguric, On IV Lasix per cardiology E-Lytes stable , Monitor , supportive care Risk of THAI higher due to ALEJANDRO, has been on IV Lasix 2/2 Increased edema , Unable to aggressively Hydrate On IVF this am after dw Cardiology Discussed with Patient the risks 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 S/P BMBx earlier today CAD: Hx of stent in the past SSS with PPM PAFIB: Currently in SR . Hx of DVT: on home xarelto HTN: controlled, HCTZ, Metoprolol at home, Not on PEDRITO-I/ARB recently Acute CHF with possible diastolic dysfunction: improved COMMENT/RELEVANT DATA Meds Current Medications Medications (Trade) Dose Ordered Sig/[place] Start Time Stop Time Status Last Admin Dose Admin Acetaminophen (Tylenol) 650 mg PRN Q6HRS PRN 01/22/20 19:45 01/23/20 07:26 650 MG Acetaminophen/ Hydrocodone Bitart (Lortab 5/325) 1 tab PRN Q4HRS PRN 01/24/20 09:45 01/25/20 23:58 1 TAB Albuterol Sulfate (Ventolin Neb Soln) 2.5 mg RTQID 01/24/20 12:00 01/26/20 07:16 2.5 MG Aspirin (Kenzie Aspirin) 325 mg DAILYWBKFT 01/23/20 15:00 01/25/20 13:51 325 MG Cyanocobalamin (Vitamin B-12) 1,000 mcg DAILY ONCE 01/25/20 11:15 01/25/20 11:16 DC 01/25/20 14:03 1,000 MCG Diltiazem HCl (Cardizem 24hr Cd) 240 mg DAILY 01/22/20 17:30 01/25/20 13:50 240 MG Diphenhydramine HCl (Benadryl) 25 mg 1X ONCE 01/26/20 08:00 01/26/20 08:01 DC Famotidine (Pepcid Vial) 20 mg 1X ONCE 01/26/20 08:00 01/26/20 08:01 DC Fentanyl Citrate (Fentanyl 2ml Vial) 50 mcg PRN Q2HR PRN 01/22/20 17:00 Cancel Furosemide (Lasix) 40 mg DAILY 01/24/20 11:00 01/25/20 13:51 40 MG Heparin Sodium (Porcine) (Heparin Sodium) 10,000 unit STK-MED ONCE 01/25/20 10:47 01/25/20 10:47 DC Heparin Sodium/ Dextrose 250 ml @ 0 mls/hr CONT PRN 01/23/20 01:15 Heparin Sodium/ Sodium Chloride 0 ml @ As Directed STK-MED ONCE 01/25/20 10:44 01/25/20 10:45 DC Hydrochlorothiazide (Hydrodiuril) 25 mg DAILY 01/22/20 17:30 01/22/20 17:41 25 MG Info (Anti-Coagulation Monitoring By Pharmacy) 1 each PRN DAILY PRN 01/23/20 07:45 01/23/20 07:37 1 EACH Iodixanol (Visipaque 320) 100 ml STK-MED ONCE 01/25/20 10:44 01/25/20 10:45 DC Lidocaine HCl (Buffered Lidocaine 1%) 3 ml 1X ONCE 01/25/20 12:15 01/25/20 12:16 DC 01/25/20 12:21 12 ML Lidocaine HCl (Xylocaine-Mpf 1% 2ml Vial) 2 ml STK-MED ONCE 01/25/20 10:44 01/25/20 10:45 DC Magnesium Sulfate 50 ml @ 25 mls/hr 1X ONCE 01/23/20 13:15 01/23/20 15:14 DC 01/23/20 14:50 25 MLS/HR Methylprednisolone Sodium Succinate (SOLU-Medrol 125MG VIAL) 125 mg 1X ONCE 01/26/20 08:00 01/26/20 08:01 DC Metoprolol Succinate (Toprol Xl) 100 mg DAILY 01/22/20 17:45 01/25/20 13:51 100 MG Midazolam HCl (Versed) 2 mg 1X ONCE 01/25/20 12:15 01/25/20 12:16 DC 01/25/20 12:17 2 MG Morphine Sulfate (Morphine Sulfate) 10 mg 1X ONCE 01/25/20 12:15 01/25/20 12:16 DC 01/25/20 12:17 4 MG Nitroglycerin (Nitroglycerin) 200 mcg STK-MED ONCE 01/25/20 10:48 01/25/20 10:48 DC Nitroglycerin/ Dextrose 250 ml @ 1.5 mls/hr CONT PRN 01/22/20 17:45 01/24/20 19:40 1.5 MLS/HR Pantoprazole Sodium (Protonix) 40 mg DAILYAC 01/22/20 17:30 01/25/20 13:50 40 MG Prednisone (Prednisone) 50 mg 1X ONCE 01/25/20 23:59 01/26/20 00:00 DC 01/25/20 23:57 50 MG Verapamil HCl (Verapamil) 5 mg STK-MED ONCE 01/25/20 10:47 01/25/20 10:47 DC Lab Laboratory Tests Test 01/26/20 08:12 White Blood Count 4.4 x10^3/uL (4.0-11.0) Red Blood Count 2.27 x10^6/uL (4.30-5.70) Hemoglobin 8.7 g/dL (13.0-17.5) Hematocrit 25.9 % (39.0-53.0) Mean Corpuscular Volume 114 fL (79-100) Mean Corpuscular Hemoglobin 38 pg (25-35) Mean Corpuscular Hemoglobin Concent 34 g/dL (31-37) Red Cell Distribution Width 14.4 % (11.5-14.5) Platelet Count 52 x10^3/uL (140-400) Sodium Level 132 mmol/L (136-145) Potassium Level 4.7 mmol/L (3.5-5.1) Chloride Level 98 mmol/L (98-107) Carbon Dioxide Level 22 mmol/L (21-32) Anion Gap 12 (6-14) Blood Urea Nitrogen 67 mg/dL (8-26) Creatinine 2.8 mg/dL (0.7-1.3) Estimated GFR (Cockcroft-Gault) 22.7 BUN/Creatinine Ratio 24 (6-20) Glucose Level 159 mg/dL (70-99) Calcium Level 8.6 mg/dL (8.5-10.1) Total Bilirubin 0.5 mg/dL (0.2-1.0) Aspartate Amino Transf (AST/SGOT) 29 U/L (15-37) Alanine Aminotransferase (ALT/SGPT) 21 U/L (16-63) Alkaline Phosphatase 82 U/L (46-116) Total Protein 8.0 g/dL (6.4-8.2) Albumin 3.2 g/dL (3.4-5.0) Albumin/Globulin Ratio 0.7 (1.0-1.7) Results All relevant outside records, renal labs, imaging studies, telemetry/EKG's were reviewed. Justicifation of Admission Dx: Justifications for Admission: Justification of Admission Dx: Yes ILIR KINCAID MD Jan 26, 2020 09:08
[2020-01-26] MEDS: METOPROLOL SUCC 24HR ER 100 MG TAB.ER.24H. PO SCH (09:54)
[2020-01-26] MEDS: ASPIRIN 325 MG TABLET PO SCH (09:54)
[2020-01-26] MEDS: IV NORMAL SALINE 1000ML BAG 1,000 ML IV SCH ×2 (10:01→20:21)
[2020-01-26] MEDS ORDERED: IODIXANOL 320 MG/ML 100 ML VIAL. ONE (10:43)
[2020-01-26] MEDS ORDERED: LIDOCAINE 1% Multi-Dose 20 ML VIAL. ONE (10:43)
[2020-01-26] MEDS ORDERED: MORPHINE SULFATE 10 MG/ML VIAL. ONE (11:00)
[2020-01-26] MEDS ORDERED: HEPARIN for IV BOLUS 10,000 UNIT/10 ML VIAL. ONE (11:00)
[2020-01-26] MEDS ORDERED: MIDAZOLAM HCL/PF 2 MG/2 ML VIAL. ONE ×2 (11:00→11:58)
[2020-01-26] MEDS ORDERED: VERAPAMIL 5 MG/2 ML VIAL. ONE (11:01)
[2020-01-26] MEDS ORDERED: NITROGLYCERIN 200 MCG/2 ML SYRINGE FOR CATH/VASC LAB. ONE (11:01)
[2020-01-26] MEDS: LORazepam 0.5 MG TABLET PO PRN (11:03)
--- NOTE | 2020-01-26 11:11 | PN ---
DATE: 01/26/2020 SUBJECTIVE: The patient is resting, slightly propped up in bed, in no apparent respiratory distress. He continued to complain of chest pain, but he does not take medication. He has had a bone marrow biopsy as his kappa and lambda light chains are elevated, making multiple myeloma likely. 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 He has received 1 unit of platelets. PHYSICAL EXAMINATION: GENERAL: When I examined him this morning, he looked well and was clearly in no apparent respiratory distress. He was pale, not jaundiced, no cyanosis or thyromegaly. No jugular venous distention. No limb edema. VITAL SIGNS: His heart rate was 98, blood pressure was 132/80, temperature 97.8, respiratory rate was 24, and oxygen saturation was 90% on room air. HEENT: Normocephalic, atraumatic. NECK: Supple. HEART: Normal first and second heart sounds. No gallop or murmur. CHEST: Shows central trachea, equal bilateral expansion. I could not really appreciate any crepitation or rhonchi. ABDOMEN: Distended, soft, nontender. NEUROLOGIC: He was grossly intact. His intake over the last 24 hours was 1700, output was 2350. LABORATORY DATA: As of this morning, his white cell count was 4400, hemoglobin 8.7, hematocrit 26, MCV 114 and platelet count 52,000. Serum sodium of 132, potassium 4.7, chloride 98, bicarbonate 22, anion gap of 12, BUN 67, creatinine 2.8, estimated GFR was 22 mL per minute, his glucose 159, calcium was 8.6, magnesium was 1.9. Total bilirubin, AST, ALT, alkaline phosphatase were normal. Total protein was 8, albumin was 3.2. ASSESSMENT: 1. Non-ST segment elevation myocardial infarction. The patient is known to have coronary artery disease, status post PCI with stent deployment to the left anterior descending, angioplasty is scheduled for cardiac catheterization, both right and left heart catheterization today. 2. Hypertension, seems to be well controlled. 3. Sick sinus syndrome, status post permanent pacemaker placement. 4. Paroxysmal atrial fibrillation, currently in sinus rhythm. The patient is on Xarelto. 5. The patient has factor V Leiden with history of deep vein thrombosis for which he is on long-term anticoagulation in the form of Xarelto. 6. Pancytopenia, questionable vitamin B12 deficiency. 7. Acute on chronic kidney injury. 8. Hyperlipidemia. 9. Acute on chronic diastolic congestive heart failure. 10. Questionable multiple myeloma given the elevated kappa and lambda chain. PLAN: To obviously continue with all his current medication. I did switch him to Fentanyl 50 mcg IV every 3 hours and Ativan 0.5 mg as he seemed to be very anxious. Continued with IV fluid. I will repeat his labs tomorrow. The patient was informed about that he has a chance that his kidney function might worsen further, might require dialysis and he is agreeable to that. KOSTA BRAVO MD DR: FLORY/jm JOB#: [id number] / [id number]
[2020-01-26] MEDS: ANTI-COAG MONITOR BY PHARMACY. MC PRN (11:13)
--- NOTE | 2020-01-26 11:52 | NUR ---
SS following up with discharge planning. Pt is currently on room air. Discharge plan is to home when medically ready. Possible need for dialysis. Physicians monitoring. SS will continue to follow for discharge planning.
[2020-01-26] MEDS ORDERED: LIDOCAINE 1% Multi-Dose 20 ML VIAL. INJ ONE (12:45)
[2020-01-26] MEDS ORDERED: MORPHINE SULFATE 10 MG/ML VIAL. IV ONE (12:45)
[2020-01-26] MEDS ORDERED: HEPARIN for IV BOLUS 10,000 UNIT/10 ML VIAL. IART ONE (12:45)
[2020-01-26] MEDS ORDERED: NITROGLYCERIN 200 MCG/2 ML SYRINGE FOR CATH/VASC LAB. IART ONE (12:45)
[2020-01-26] MEDS ORDERED: IODIXANOL 320 MG/ML 100 ML VIAL. IART ONE (12:45)
[2020-01-26] MEDS ORDERED: VERAPAMIL 5 MG/2 ML VIAL. IART ONE (12:45)
[2020-01-26] MEDS ORDERED: MIDAZOLAM HCL/PF 2 MG/2 ML VIAL. IV ONE (12:45)
[2020-01-26 13:13] LABS: ALBUM 3.5 g/dL (2.9-4.4); ALPHA 1 0.3 g/dL (0.0-0.4); ALPHA 2 1.2 g/dL (0.4-1.0); BETA 1.1 g/dL (0.7-1.3); GAMMA 1.2 g/dL (0.4-1.8); PROTEIN TOTAL 7.3 g/dL (6.0-8.5); SPEP AG RATIO 0.9 (0.7-1.7)
[2020-01-26 14:04] LABS: BILIRUBIN,URINE NEGATIVE (NEG); CLARITY,URINE CLEAR; COLOR,URINE YELLOW; NITRITE,URINE NEGATIVE (NEG); PROTEIN,URINE 100 mg/dL (NEG-TRACE); UROBILINOGEN,URINE 0.2 mg/dL (0.2 mg/dL)
[2020-01-26 14:13] LABS: BACTERIA,URINE 0 /HPF (0-FEW); RBC,URINE 0 /HPF (0-2); SQUAMOUS EPITHELIAL CELL,UR OCC /LPF; WBC,URINE RARE /HPF (0-4)
[2020-01-26] MEDS ORDERED: 0.9 % SODIUM CHLORIDE 10 ML DISP.SYRIN. IV PRN (14:15)
[2020-01-26] MEDS: FUROSEMIDE 40 MG/4 ML VIAL. IVP SCH (14:43)
--- NOTE | 2020-01-26 14:43 | CARD ---
MR#: [id number] Date of Study: 01/26/2020 Ordering Physician: BRIE FUCHS, Referring Physician: BRIE FUCHS, Tech: Radha Catalan APPROVED REPORT EXAM: Two-dimensional and M-mode echocardiogram with Doppler and color Doppler. Other Information Quality : AverageHR: 58bpm INDICATION Dyspnea Atrial Fibrillation Cardiac Disease: CAD Non STEMI Surgery/Intervention Pacemaker: RISK FACTORS Hypertension 2D DIMENSIONS RVDd3.7 (2.9-3.5cm)Left Atrium(2D)4.6 (1.6-4.0cm) IVSd1.1 (0.7-1.1cm)Aortic Root(2D)3.5 (2.0-3.7cm) LVDd4.8 (3.9-5.9cm)LVOT Diameter2.2 (1.8-2.4cm) PWd1.3 (0.7-1.1cm)LVDs2.9 (2.5-4.0cm) FS (%) 39.6 %SV73.7 ml Aortic Valve AoV Peak Charles.131.9cm/sAoV VTI28.2cm AO Peak GR.7.0mmHgLVOT VTI 19.23cm AO Mean GR.5mmHg Mitral Valve MV E Eqkttkog128.3cm/sMV E Peak Gr.6mmHg MV E Mean Gr.2mmHg TDI Lateral E' P. V11.33cm/sMedial E' P. V8.04cm/s E/Lateral E'10.6E/Medial E'15.0 Tricuspid Valve TR P. Xgfkgesd223wv/sRAP RDQORWVO1reGx TR Peak Gr.29izGlKCZN65jbWi Pulmonary Vein S1 Joztytgb17.1cm/sS2 Mbvnkleo10.60cm/s D2 Nmzrjnft72.6cm/s LEFT VENTRICLE The left ventricle is normal size. There is mild concentric left ventricular hypertrophy. The left ve ntricular systolic function is normal and the ejection fraction is within normal range. The Ejection Fraction is 50-55%. The left ventricular diastolic function and filling is normal for age. RIGHT VENTRICLE The right ventricle is borderline dilated. There is normal right ventricular wall thickness. The righ t ventricular systolic function is normal. There is a pacemaker lead in the right ventricle. ATRIA The left atrium is mildly dilated. The right atrium is mildly dilated. The interatrial septum is inta ct with no evidence for an atrial septal defect or patent foramen ovale as noted on 2-D or Doppler im aging. AORTIC VALVE The aortic valve is thickened but opens well. Doppler and Color Flow revealed no significant aortic r egurgitation. There is no significant aortic valvular stenosis. Calculated aortic valve area is 2.57 cm2 with maximum pressure gradient of 10 mmHg and mean pressure gradient of 5 mmHg. MITRAL VALVE The mitral valve is normal in structure and function. There is no evidence of mitral valve prolapse. There is no mitral valve stenosis. Doppler and Color-flow revealed trace mitral regurgitation. TRICUSPID VALVE The tricuspid valve is normal in structure and function. Doppler and Color Flow revealed trace to mil d tricuspid regurgitation with an estimated PAP of 62 mmHg. There is no tricuspid valve stenosis. PULMONIC VALVE The pulmonic valve is not well visualized. Doppler and Color Flow revealed no pulmonic valvular regur gitation. GREAT VESSELS The aortic root is normal in size. The IVC is dilated. PERICARDIAL EFFUSION There is no evidence of significant pericardial effusion. Critical Notification Critical Value: No <Conclusion> The left ventricle is normal size. The left ventricular systolic function is normal and the ejection fraction is within normal range. The Ejection Fraction is 50-55%. There is a pacemaker lead in the right ventricle. Doppler and Color Flow revealed no significant aortic regurgitation. There is no significant aortic valvular stenosis. Calculated aortic valve area is 2.57 cm2 with maximum pressure gradient of 10 mmHg and mean pressure gradient of 5 mmHg. Doppler and Color-flow revealed trace mitral regurgitation. Doppler and Color Flow revealed trace to mild tricuspid regurgitation with an estimated PAP of 62 mmH g. Signed by : Alexis Quesada MD Electronically Approved : 01/26/2020 14:43:29
[2020-01-26] MEDS: fentaNYL PF VIAL 100 MCG/2 ML VIAL IVP PRN ×4 (14:47→23:20)
--- NOTE | 2020-01-26 15:22 | CARD ---
MR#: [id number] Date of Study: 01/26/2020 Ordering Physician: CORNELIO IZQUIERDO, Referring Physician: CORNELIO IZQUIERDO, Tech: RT Manny (R) STEPH APPROVED REPORT Technologist: RT Manny (R) STEPH Nurse: Loulou Duval R.N. Procedure(s) performed: Left heart catheterization, selective coronary angiography via right transrad ial approach Fluoro Time: 4.5 min Dose: 110 Gycm2 Contrast: 91ml Moderate Sedation: 61 min Class IV Heart Failure INDICATION The indication(s) include : non-STEMI . CS Clinical Frailty Scale [facility] Clinical Frailty Scale: Mildly Frail Heart Failure Heart Failure: Yes If Yes, Newly Diagnosed: No If Yes, HF Type: Diastolic PROCEDURE NARRATIVE After explaining the risks, benefits and alternative options, informed consent was obtained from zeina ent. Patient was brought to the cardiac Fnps and right wrist was prepped and draped in the usual fashion after confirming a positive modified James's test. Attempts to gain right radial arterial a ccess were unsuccessful probably due to small caliber vessel. His left wrist was then prepped and dr aped in the usual fashion after confirming a positive modified James's test. Arterial access was obt ained in the left radial artery and a 6 Pakistani sheath was inserted. 6 Pakistani JL 4 and 6 Pakistani JR4 c atheters were used to perform selective angiography of the left and right coronary arteries. LVEDP a nd transaortic gradients were measured. Left ventriculography was not performed due to renal insuffi ciency and availability of recent 2D echo that showed LVEF 50 to 55%. Patient tolerated the procedur e well. Hemostasis was achieved using TR band. There were no immediate complications. The followin g findings were noted. FINDINGS 1. Hemodynamics: Elevated left ventricular end-diastolic pressure of 28 mmHg consistent with acute o n chronic diastolic heart failure. No pullback gradient across the aortic valve. 2. Coronary angiography: a. The left main coronary artery arose from the left sinus of Valsalva, gave rise to the left anteri or descending, ramus intermedius and left circumflex arteries and showed 30% proximal segment stenosi s and critical 90% distal segment stenosis. b. The left anterior descending artery showed ectatic proximal segment and patent previously placed stent in the midsegment. c. The left circumflex artery showed 40% stenosis in the proximal segment. d. The ramus intermedius artery did not show any significant stenosis. e. The right coronary artery was a large and dominant vessel arising from the right sinus of Valsalv a that showed 30% stenosis in the midsegment and a critical 95% stenosis of the distal segment. Conclusion Severe three-vessel coronary disease including critical left main coronary artery stenosis as describ ed above. Recommendations Cardiothoracic surgery referral for possible coronary artery bypass surgery. Signed by : Cornelio Izquierdo, Electronically Approved : 01/26/2020 15:21:37
--- NOTE | 2020-01-26 16:45 | RAD ---
Examination: Ultrasound kidneys HISTORY: History of acute renal insufficiency COMPARISON: None available. Findings The right kidney measures 13.2 x 5.0 x 6.2 cm. Cystic structure identified in the right kidney measuring 3.3 cm probably cyst. The left kidney measures 12.8 x 5.8 x 5.6 cm. The urinary bladder is mildly distended. Postvoid urinary bladder volume is 192 ml. Incidental note increased echogenicity identified in the liver likely hepatic steatosis. IMPRESSION: 1. Right renal cyst. 2. Postvoid urinary bladder volume is 192 ml. 3. Incidental note increased echogenicity identified in the liver likely hepatic steatosis. Electronically signed by: Jean Marie Mccabe MD (01/26/2020 4:43 PM) [id number]
[2020-01-26] MEDS: NITROGLYCERIN PREMIX 250 ML IV PRN (22:47)
[2020-01-27] VITALS (32 sets, daily range): BP systolic 113–207; BP diastolic 47–116
[2020-01-27] MEDS: fentaNYL PF VIAL 100 MCG/2 ML VIAL IVP PRN ×4 (02:18→11:39)
--- NOTE | 2020-01-27 03:06 | NUR ---
Pt refusing to keep arm board and bandage left wrist cath site since beginning of shift starting at 1900. Explained to patient the reason for wearing them, patient states that he doesn't need them. Will continue to encourage patient to leave the arm board in place. WIll continue to monitor patient.
[2020-01-27 06:12] LABS: COPPER LEVEL 147 ug/dL (72-166)
[2020-01-27] MEDS: FUROSEMIDE 40 MG/4 ML VIAL. IVP SCH (08:17)
[2020-01-27] MEDS: hydroCHLOROthiazide 25 MG TABLET PO SCH (08:18)
[2020-01-27] MEDS: METOPROLOL SUCC 24HR ER 100 MG TAB.ER.24H. PO SCH (08:18)
[2020-01-27] MEDS: PANTOPRAZOLE 40 MG TABLET.DR. PO SCH (08:18)
[2020-01-27] MEDS: ASPIRIN 325 MG TABLET PO SCH (08:18)
[2020-01-27 08:50] LABS: BASO % 0 % (0-3); EOS % 0 % (0-3); HEMATOCRIT 25.1 % (39.0-53.0); HEMOGLOBIN 8.5 g/dL (13.0-17.5); LYMPH # 1.1 x10^3/uL (1.0-4.8); LYMPH % 17 % (24-48); MEAN CORPUSCULAR HEMOGLOBIN 39 pg (25-35); MEAN CORPUSCULAR HGB CONC 34 g/dL (31-37); MEAN CORPUSCULAR VOLUME 114 fL (79-100); MONO # 1.5 x10^3/uL (0.0-1.1); MONO % 24 % (0-9); NEUT # 3.8 x10^3/uL (1.8-7.7); NEUT % 60 % (31-73); PLATELET COUNT 49 x10^3/uL (140-400); RED BLOOD COUNT 2.19 x10^6/uL (4.30-5.70); WHITE BLOOD COUNT 6.4 x10^3/uL (4.0-11.0)
[2020-01-27 09:00] LABS: CALCIUM 8.3 mg/dL (8.5-10.1); CREATININE 2.2 mg/dL (0.7-1.3); POTASSIUM 4.3 mmol/L (3.5-5.1)
--- NOTE | 2020-01-27 09:01 | PDOC ---
DATE OF SERVICE DATE: 01/27/20 TIME: 08:59 SUBJECTIVE ROS C/O some chest pressure ,cardiology contacted by RN OBJECTIVE Vital Signs Vital Signs Date Time Temp Pulse Resp B/P (MAP) Pulse Ox O2 Delivery O2 Flow Rate FiO2 01/27/20 08:18 66 170/85 01/27/20 08:17 92 Nasal Cannula 2.0 01/27/20 07:24 97.4 16 97.4 I & 0 Intake and Output0 01/27/20 07:00 Intake Total 1961 ml Output Total 1600 ml Balance 361 ml Intake Oral 480 ml IV Total 1250 ml Blood Product IV Normal Saline Flush 231 ml Output Urine Total 1600 ml PHYSICAL EXAM Physical Exam General- NAD, HEENT: OM moist Neck Supple Lungs : diminished bases), Non labored Heart: RRR Abdomen: Soft N/T, Obese Extremities: No Calf Tenderness,trace bilateral LE edema Neurology: alert, oriented, grossly normal Skin No Rash No crandall, No CVA or SP tenderness DIAGNOSIS/ASSESSMENT Assessment & Plan ALEJANDRO- ATN/Cardiorenal/Hypotensive Non Oliguric, UA unremarkable except for proteinuria S/P LHC on 01/25, Cr better this am , Monitor E-Lytes stable , supportive care, IVF cautiously Renal US - Right renal cyst, Postvoid urinary bladder volume is 192 ml. ?CKD stage 3- based on [facility] labs baseline Cr 1.2-1.7 since 2014 Patient reports he is Not aware Had ALEJANDRO in 2015, seen by Nephrology , UA was unremarkable CT scan in 2015 - Kidneys and bladder unremarkable NSTEMI:S/P LHC ON 01/25 Severe three-vessel coronary disease including critical left main coronary artery stenosis Recommnedation for CABG per cardiology, possible transfer to [facility] Anemia /Hematochezia Severe thrombocytopenia with hx of factor V leiden mutation?: Hematology following. S/P BMBx CAD: Hx of stent in the past SSS with PPM PAFIB: Currently in SR . Hx of DVT: on home xarelto HTN: controlled, HCTZ, Metoprolol at home, Not on PEDRITO-I/ARB recently Acute CHF with possible diastolic dysfunction: improved ?Remote Uretheral stricture requiring frequent dilatation COMMENT/RELEVANT DATA Meds Current Medications Medications (Trade) Dose Ordered Sig/[place] Start Time Stop Time Status Last Admin Dose Admin Acetaminophen (Tylenol) 650 mg PRN Q6HRS PRN 01/22/20 19:45 01/23/20 07:26 650 MG Acetaminophen/ Hydrocodone Bitart (Lortab 5/325) 1 tab PRN Q4HRS PRN 01/24/20 09:45 01/25/20 23:58 1 TAB Albuterol Sulfate (Ventolin Neb Soln) 2.5 mg RTQID 01/24/20 12:00 01/26/20 20:53 2.5 MG Aspirin (Kenzie Aspirin) 325 mg DAILYWBKFT 01/23/20 15:00 01/27/20 08:18 325 MG Cyanocobalamin (Vitamin B-12) 1,000 mcg DAILY ONCE 01/25/20 11:15 01/25/20 11:16 DC 01/25/20 14:03 1,000 MCG Diltiazem HCl (Cardizem 24hr Cd) 240 mg DAILY 01/22/20 17:30 01/27/20 08:18 240 MG Diphenhydramine HCl (Benadryl) 25 mg 1X ONCE 01/26/20 08:00 01/26/20 08:01 DC 01/26/20 09:59 25 MG Famotidine (Pepcid Vial) 20 mg 1X ONCE 01/26/20 08:00 01/26/20 08:01 DC 01/26/20 09:59 20 MG Fentanyl Citrate (Fentanyl 2ml Vial) 50 mcg PRN Q3HRS PRN 01/26/20 10:45 01/27/20 08:17 50 MCG Furosemide (Lasix) 40 mg DAILY 01/24/20 11:00 01/27/20 08:17 40 MG Heparin Sodium (Porcine) (Heparin Sodium) 2,500 unit 1X ONCE 01/26/20 12:45 01/26/20 12:46 DC 01/26/20 12:56 2,500 UNIT Heparin Sodium/ Dextrose 250 ml @ 0 mls/hr CONT PRN 01/23/20 01:15 01/26/20 10:43 DC Heparin Sodium/ Sodium Chloride (HEPARIN for ARTERIAL LINE FLUSH) 1,000 unit 1X ONCE 01/26/20 12:45 01/26/20 12:46 DC 01/26/20 12:57 1,000 UNIT Hydrochlorothiazide (Hydrodiuril) 25 mg DAILY 01/22/20 17:30 01/27/20 08:18 25 MG Info (Anti-Coagulation Monitoring By Pharmacy) 1 each PRN DAILY PRN 01/23/20 07:45 01/26/20 11:13 1 EACH Iodixanol (Visipaque 320) 91 ml 1X ONCE 01/26/20 12:45 01/26/20 12:46 DC 01/26/20 12:55 91 ML Lidocaine HCl (Buffered Lidocaine 1%) 3 ml 1X ONCE 01/25/20 12:15 01/25/20 12:16 DC 01/25/20 12:21 12 ML Lidocaine HCl (Lidocaine 1% 20ml Vial) 1.5 ml 1X ONCE 01/26/20 12:45 01/26/20 12:46 DC 01/26/20 12:53 1.5 ML Lidocaine HCl (Xylocaine-Mpf 1% 2ml Vial) 2 ml STK-MED ONCE 01/25/20 10:44 01/25/20 10:45 DC Lorazepam (Ativan) 0.5 mg PRN Q6HRS PRN 01/26/20 10:45 01/26/20 11:03 0.5 MG Magnesium Sulfate 50 ml @ 25 mls/hr 1X ONCE 01/23/20 13:15 01/23/20 15:14 DC 01/23/20 14:50 25 MLS/HR Methylprednisolone Sodium Succinate (SOLU-Medrol 125MG VIAL) 125 mg 1X ONCE 01/26/20 08:00 01/26/20 08:01 DC 01/26/20 09:59 125 MG Metoprolol Succinate (Toprol Xl) 100 mg DAILY 01/22/20 17:45 01/27/20 08:18 100 MG Midazolam HCl (Versed) 3 mg 1X ONCE 01/26/20 12:45 01/26/20 12:46 DC 01/26/20 12:54 3 MG Morphine Sulfate (Morphine Sulfate) 2 mg 1X ONCE 01/26/20 12:45 01/26/20 12:46 DC 01/26/20 12:54 2 MG Nitroglycerin (Nitroglycerin) 200 mcg 1X ONCE 01/26/20 12:45 01/26/20 12:46 DC 01/26/20 12:54 200 MCG Nitroglycerin/ Dextrose 250 ml @ 1.5 mls/hr CONT PRN 01/22/20 17:45 01/26/20 22:47 6 MLS/HR Pantoprazole Sodium (Protonix) 40 mg DAILYAC 01/22/20 17:30 01/27/20 08:18 40 MG Prednisone (Prednisone) 50 mg 1X ONCE 01/25/20 23:59 01/26/20 00:00 DC 01/25/20 23:57 50 MG Sodium Chloride (Normal Saline Flush) 3 ml QSHIFT PRN 01/26/20 14:15 Verapamil HCl (Verapamil) 2.5 mg 1X ONCE 01/26/20 12:45 01/26/20 12:46 DC 01/26/20 12:56 2.5 MG Lab Laboratory Tests Test 01/26/20 13:50 01/27/20 07:53 Urine Collection Type Unknown Urine Color Yellow Urine Clarity Clear Urine pH 5.0 (<5.0-8.0) Urine Specific [place] >=1.030 (1.000-1.030) Urine Protein 100 mg/dL (NEG-TRACE) Urine Glucose (UA) Negative mg/dL (NEG) Urine Ketones (Stick) Negative mg/dL (NEG) Urine Blood Negative (NEG) Urine Nitrite Negative (NEG) Urine Bilirubin Negative (NEG) Urine Urobilinogen Dipstick 0.2 mg/dL (0.2 mg/dL) Urine Leukocyte Esterase Negative (NEG) Urine RBC 0 /HPF (0-2) Urine WBC Rare /HPF (0-4) Urine Squamous Epithelial Cells Occ /LPF Urine Bacteria 0 /HPF (0-FEW) Urine Mucus Slight /LPF White Blood Count 6.4 x10^3/uL (4.0-11.0) Red Blood Count 2.19 x10^6/uL (4.30-5.70) Hemoglobin 8.5 g/dL (13.0-17.5) Hematocrit 25.1 % (39.0-53.0) Mean Corpuscular Volume 114 fL (79-100) Mean Corpuscular Hemoglobin 39 pg (25-35) Mean Corpuscular Hemoglobin Concent 34 g/dL (31-37) Red Cell Distribution Width 15.0 % (11.5-14.5) Platelet Count 49 x10^3/uL (140-400) Neutrophils (%) (Auto) 60 % (31-73) Lymphocytes (%) (Auto) 17 % (24-48) Monocytes (%) (Auto) 24 % (0-9) Eosinophils (%) (Auto) 0 % (0-3) Basophils (%) (Auto) 0 % (0-3) Neutrophils # (Auto) 3.8 x10^3/uL (1.8-7.7) Lymphocytes # (Auto) 1.1 x10^3/uL (1.0-4.8) Monocytes # (Auto) 1.5 x10^3/uL (0.0-1.1) Eosinophils # (Auto) 0.0 x10^3/uL (0.0-0.7) Basophils # (Auto) 0.0 x10^3/uL (0.0-0.2) Results All relevant outside records, renal labs, imaging studies, telemetry/EKG's were reviewed. Justicifation of Admission Dx: Justifications for Admission: Justification of Admission Dx: Yes ILIR KINCAID MD Jan 27, 2020 09:01
[2020-01-27] MEDS: ALBUTEROL SULFATE 2.5 MG/3 ML NEBU. NEB SCH ×2 (09:17→12:05)
[2020-01-27] MEDS: IV NORMAL SALINE 1000ML BAG 1,000 ML IV SCH (09:42)
[2020-01-27] MEDS: LORazepam 0.5 MG TABLET PO PRN (09:59)
[2020-01-27 11:01] LABS: % LYMPHS 23 % (24-48); % MONOS 9 % (0-10); % SEGS 68 % (35-66); PLT ESTIMATE DECREASED (ADEQUATE)
[2020-01-27 11:02] LABS: ANISOCYTOSIS SLIGHT
--- NOTE | 2020-01-27 11:26 | NUR ---
SS following up with discharge planning. Cardiology requesting transfer to [facility] for CABG. SS contacted [facility] transfer team, , and spoke with Jim. SS was notified that Dr. James Lopez has accepted. SS faxed clinical as requested. Images clouded to [facility]. SS received CD's of images from radiology and cardiology and placed in packet. Packet, transfer form, and ambulance form on the chart. SS currently awaiting on bed availability and will proceed accordingly. Pt's RN notified.
--- NOTE | 2020-01-27 13:04 | NUR ---
SS following up with discharge planning. SS received notification that pt has bed at [facility]. Accepting physician, Dr. James Lopez. Bed# 2316. Report# [phone]. Pt will discharge and go to [facility] via [facility] ambulance at 1400. Packet, ambulance form, and transfer form on the chart. Pt's RN notified.
--- NOTE | 2020-01-27 14:19 | NUR ---
Pt transferred to [facility] with report called to DIO Gaitan and all labs and medications reviewed. Patient's belongings sent in a bag with EMS. Nitroglycerin gtt running connected to a dial-a-flow and EMS aware along with accepting nurse.
--- NOTE | 2020-01-27 14:52 | PDOC ---
PROGRESS NOTES Date of Service DATE: 01/27/20 TIME: 14:44 Subjective Subjective Mr. Mcclain was seen in a follow-up visit today. No new concerns today. Plan for transfer to [facility] today for his evaluation for CABG Objective Objective Vital Signs Date Time Temp Pulse Resp B/P (MAP) Pulse Ox O2 Delivery O2 Flow Rate FiO2 01/27/20 13:43 59 123/72 (89) 01/27/20 12:09 93 Nasal Cannula 1.0 01/27/20 11:00 97.5 16 97.5 Intake and Output 01/27/20 07:00 Intake Total 1961 ml Output Total 1600 ml Balance 361 ml Intake Oral 480 ml IV Total 1250 ml Blood Product IV Normal Saline Flush 231 ml Output Urine Total 1600 ml Physical Exam Abdomen: Normal bowel sounds, Soft Heart: Regular rate, Normal S1, Normal S2 Extremities: No clubbing General: Alert, Oriented X3 HEENT: Atraumatic, PERRLA Lungs: Clear to auscultation MUSCULOSKELETAL: No joint tenderness Neck: Supple Neuro: Normal gait, Normal speech Assessment Assessment NSTEMI Pancytopenia with macrocytosis History of B12 deficiency with now borderline B12 level Hematochezia Factor V Leiden with history of DVT/PE in 2014 status post IVC filter placement Coronary artery disease status post PCI with now critical lesions in LAD and RCA Atrial fibrillation CKD stage III Plan Plan of Care -I discussed the findings of his coronary angiogram with his model builder display Dr. Izquierdo on 01/26/2020. Given critical lesions in RCA and left main coronary artery, transferred to [facility] for CABG is being planned -Bone marrow biopsy results are pending at this time. My suspicion for his severe thrombocytopenia is B12 deficiency versus possibly component of ITP. Other work-up including myeloma studies are not suggestive of a plasma cell disorder. (Given normal free kappa lambda light chain ratio) -For perioperative management, I will defer to cardiovascular surgery regarding the platelet threshold but transfusion to maintain platelets greater than 50 is a generally accepted threshold. -Low suspicion for ITP but trial of IVIG administration may be considered and would have transient benefit -Continue with B12 supplementation parenterally with IM 1000 MCG daily -Would plan on checking folic acid as outpatient. Testing not allowed by hospital formulary. -I will follow-up on bone marrow biopsy. I recommend follow-up visit with me in 4 weeks -Consider GI evaluation when patient reports of hematochezia. May be pursued as outpatient Lawrence Sierra MD Medical Oncology/Hematology Ph: [phone] Comment Review of Relevant I have reviewed the following items kolby (where applicable) has been applied. Labs Laboratory Tests Test 01/26/20 08:12 01/26/20 13:50 01/27/20 07:53 White Blood Count 4.4 x10^3/uL (4.0-11.0) 6.4 x10^3/uL (4.0-11.0) Red Blood Count 2.27 x10^6/uL (4.30-5.70) 2.19 x10^6/uL (4.30-5.70) Hemoglobin 8.7 g/dL (13.0-17.5) 8.5 g/dL (13.0-17.5) Hematocrit 25.9 % (39.0-53.0) 25.1 % (39.0-53.0) Mean Corpuscular Volume 114 fL (79-100) 114 fL (79-100) Mean Corpuscular Hemoglobin 38 pg (25-35) 39 pg (25-35) Mean Corpuscular Hemoglobin Concent 34 g/dL (31-37) 34 g/dL (31-37) Red Cell Distribution Width 14.4 % (11.5-14.5) 15.0 % (11.5-14.5) Platelet Count 52 x10^3/uL (140-400) 49 x10^3/uL (140-400) Sodium Level 132 mmol/L (136-145) 134 mmol/L (136-145) Potassium Level 4.7 mmol/L (3.5-5.1) 4.3 mmol/L (3.5-5.1) Chloride Level 98 mmol/L (98-107) 99 mmol/L (98-107) Carbon Dioxide Level 22 mmol/L (21-32) 25 mmol/L (21-32) Anion Gap 12 (6-14) 10 (6-14) Blood Urea Nitrogen 67 mg/dL (8-26) 66 mg/dL (8-26) Creatinine 2.8 mg/dL (0.7-1.3) 2.2 mg/dL (0.7-1.3) Estimated GFR (Cockcroft-Gault) 22.7 30.0 BUN/Creatinine Ratio 24 (6-20) Glucose Level 159 mg/dL (70-99) 147 mg/dL (70-99) Calcium Level 8.6 mg/dL (8.5-10.1) 8.3 mg/dL (8.5-10.1) Total Bilirubin 0.5 mg/dL (0.2-1.0) Aspartate Amino Transf (AST/SGOT) 29 U/L (15-37) Alanine Aminotransferase (ALT/SGPT) 21 U/L (16-63) Alkaline Phosphatase 82 U/L (46-116) Total Protein 8.0 g/dL (6.4-8.2) Albumin 3.2 g/dL (3.4-5.0) Albumin/Globulin Ratio 0.7 (1.0-1.7) Urine Collection Type Unknown Urine Color Yellow Urine Clarity Clear Urine pH 5.0 (<5.0-8.0) Urine Specific [place] >=1.030 (1.000-1.030) Urine Protein 100 mg/dL (NEG-TRACE) Urine Glucose (UA) Negative mg/dL (NEG) Urine Ketones (Stick) Negative mg/dL (NEG) Urine Blood Negative (NEG) Urine Nitrite Negative (NEG) Urine Bilirubin Negative (NEG) Urine Urobilinogen Dipstick 0.2 mg/dL (0.2 mg/dL) Urine Leukocyte Esterase Negative (NEG) Urine RBC 0 /HPF (0-2) Urine WBC Rare /HPF (0-4) Urine Squamous Epithelial Cells Occ /LPF Urine Bacteria 0 /HPF (0-FEW) Urine Mucus Slight /LPF Neutrophils (%) (Auto) 60 % (31-73) Lymphocytes (%) (Auto) 17 % (24-48) Monocytes (%) (Auto) 24 % (0-9) Eosinophils (%) (Auto) 0 % (0-3) Basophils (%) (Auto) 0 % (0-3) Neutrophils # (Auto) 3.8 x10^3/uL (1.8-7.7) Lymphocytes # (Auto) 1.1 x10^3/uL (1.0-4.8) Monocytes # (Auto) 1.5 x10^3/uL (0.0-1.1) Eosinophils # (Auto) 0.0 x10^3/uL (0.0-0.7) Basophils # (Auto) 0.0 x10^3/uL (0.0-0.2) Segmented Neutrophils % 68 % (35-66) Lymphocytes % 23 % (24-48) Monocytes % 9 % (0-10) Platelet Estimate Decreased (ADEQUATE) Anisocytosis Slight Macrocytosis Mod Laboratory Tests Test 01/27/20 07:53 White Blood Count 6.4 x10^3/uL (4.0-11.0) Red Blood Count 2.19 x10^6/uL (4.30-5.70) Hemoglobin 8.5 g/dL (13.0-17.5) Hematocrit 25.1 % (39.0-53.0) Mean Corpuscular Volume 114 fL (79-100) Mean Corpuscular Hemoglobin 39 pg (25-35) Mean Corpuscular Hemoglobin Concent 34 g/dL (31-37) Red Cell Distribution Width 15.0 % (11.5-14.5) Platelet Count 49 x10^3/uL (140-400) Neutrophils (%) (Auto) 60 % (31-73) Lymphocytes (%) (Auto) 17 % (24-48) Monocytes (%) (Auto) 24 % (0-9) Eosinophils (%) (Auto) 0 % (0-3) Basophils (%) (Auto) 0 % (0-3) Neutrophils # (Auto) 3.8 x10^3/uL (1.8-7.7) Lymphocytes # (Auto) 1.1 x10^3/uL (1.0-4.8) Monocytes # (Auto) 1.5 x10^3/uL (0.0-1.1) Eosinophils # (Auto) 0.0 x10^3/uL (0.0-0.7) Basophils # (Auto) 0.0 x10^3/uL (0.0-0.2) Segmented Neutrophils % 68 % (35-66) Lymphocytes % 23 % (24-48) Monocytes % 9 % (0-10) Platelet Estimate Decreased (ADEQUATE) Anisocytosis Slight Macrocytosis Mod Sodium Level 134 mmol/L (136-145) Potassium Level 4.3 mmol/L (3.5-5.1) Chloride Level 99 mmol/L (98-107) Carbon Dioxide Level 25 mmol/L (21-32) Anion Gap 10 (6-14) Blood Urea Nitrogen 66 mg/dL (8-26) Creatinine 2.2 mg/dL (0.7-1.3) Estimated GFR (Cockcroft-Gault) 30.0 Glucose Level 147 mg/dL (70-99) Calcium Level 8.3 mg/dL (8.5-10.1) Medications Current Medications Diltiazem HCl (Cardizem 24hr Cd) 240 mg DAILY PO Last administered on 01/27/20at 08:18; Start 01/22/20 at 17:30; Stop 01/27/20 at 14:29; Status DC Metoprolol Succinate (Toprol Xl) 200 mg DAILY PO ; Start 01/22/20 at 17:30; Stop 01/22/20 at 17:34; Status DC Pantoprazole Sodium (Protonix) 40 mg DAILYAC PO Last administered on 01/27/20at 08:18; Start 01/22/20 at 17:30; Stop 01/27/20 at 14:29; Status DC Hydrochlorothiazide (Hydrodiuril) 25 mg DAILY PO Last administered on 01/27/20at 08:18; Start 01/22/20 at 17:30; Stop 01/27/20 at 14:29; Status DC Heparin Sodium/ Dextrose 250 ml @ 0 mls/hr CONT PRN IV PER PROTOCOL; Start 01/22/20 at 17:00; Status UNV Heparin Sodium (Porcine) (Heparin Sodium) 2,700 unit PRN Q6HRS PRN IV FOR UFH LEVEL LESS THAN 0.2; Start 01/22/20 at 17:00; Status Cancel Fentanyl Citrate (Fentanyl 2ml Vial) 50 mcg PRN Q2HR PRN IVP PAIN; Start 01/22/20 at 17:00; Status Cancel Heparin Sodium/ Dextrose 250 ml @ 13.08 mls/ hr CONT PRN IV PER PROTOCOL Last administered on 01/22/20at 17:49; Start 01/22/20 at 17:30; Stop 01/23/20 at 01:11; Status DC Heparin Sodium (Porcine) (Heparin Sodium) 2,700 unit PRN Q6HRS PRN IV FOR PTT < 40; Start 01/22/20 at 17:30; Status Cancel Metoprolol Succinate (Toprol Xl) 100 mg DAILY PO Last administered on 01/27/20at 08:18; Start 01/22/20 at 17:45; Stop 01/27/20 at 14:29; Status DC Morphine Sulfate (Morphine Sulfate) 2 mg PRN Q2HR PRN IV PAIN Last administered on 01/23/20at 07:26; Start 01/22/20 at 17:45; Stop 01/23/20 at 09:40; Status DC Nitroglycerin/ Dextrose 250 ml @ 1.5 mls/hr CONT PRN IV SEE I/O RECORD Last administered on 01/26/20at 22:47; Start 01/22/20 at 17:45; Stop 01/27/20 at 14:29; Status DC Furosemide (Lasix) 40 mg 1X ONCE IVP Last administered on 01/22/20at 19:57; Start 01/22/20 at 20:00; Stop 01/22/20 at 20:01; Status DC Acetaminophen (Tylenol) 650 mg PRN Q6HRS PRN PO HEADACHE Last administered on 01/23/20at 07:26; Start 01/22/20 at 19:45; Stop 01/27/20 at 14:29; Status DC Albuterol Sulfate (Ventolin Neb Soln) 2.5 mg PRN Q4HRS PRN NEB SHORTNESS OF BREATH Last administered on 01/24/20at 08:08; Start 01/22/20 at 21:15; Stop 01/24/20 at 09:27; Status DC Heparin Sodium/ Dextrose 250 ml @ 0 mls/hr CONT PRN IV PER PROTOCOL; Start 01/23/20 at 01:15; Stop 01/26/20 at 10:43; Status DC Heparin Sodium (Porcine) (Heparin Sodium) 2,750 unit PRN Q6HRS PRN IV FOR UFH LEVEL LESS THAN 0.2 Last administered on 01/23/20at 01:25; Start 01/23/20 at 01:15; Stop 01/26/20 at 11:09; Status DC Info (Anti-Coagulation Monitoring By Pharmacy) 1 each PRN DAILY PRN MC SEE COMMENTS Last administered on 01/26/20at 11:13; Start 01/23/20 at 07:45; Stop 01/27/20 at 14:29; Status DC Morphine Sulfate (Morphine Sulfate) 4 mg PRN Q2HR PRN IV PAIN Last administered on 01/26/20at 09:58; Start 01/23/20 at 09:45; Stop 01/26/20 at 10:43; Status DC Magnesium Sulfate 50 ml @ 25 mls/hr 1X ONCE IV Last administered on 01/23/20at 14:50; Start 01/23/20 at 13:15; Stop 01/23/20 at 15:14; Status DC Prednisone (Prednisone) 30 mg 1X ONCE PO Last administered on 01/23/20at 16:19; Start 01/23/20 at 15:00; Stop 01/23/20 at 15:01; Status DC Prednisone (Prednisone) 30 mg 1X ONCE PO Last administered on 01/23/20at 21:40; Start 01/23/20 at 22:00; Stop 01/23/20 at 22:01; Status DC Prednisone (Prednisone) 30 mg 1X ONCE PO Last administered on 01/24/20at 06:27; Start 01/24/20 at 07:30; Stop 01/24/20 at 07:31; Status DC Aspirin (Kenzie Aspirin) 325 mg DAILYWBKFT PO Last administered on 01/27/20at 08:18; Start 01/23/20 at 15:00; Stop 01/27/20 at 14:29; Status DC Albuterol Sulfate (Ventolin Neb Soln) 2.5 mg Q4HRS NEB ; Start 01/24/20 at 12:00; Status UNV Albuterol Sulfate (Ventolin Neb Soln) 2.5 mg RTQID NEB Last administered on 01/27/20at 12:05; Start 01/24/20 at 12:00; Stop 01/27/20 at 14:29; Status DC Acetaminophen/ Hydrocodone Bitart (Lortab 5/325) 1 tab PRN Q4HRS PRN PO PAIN Last administered on 01/25/20at 23:58; Start 01/24/20 at 09:45; Stop 01/27/20 at 14:29; Status DC Furosemide (Lasix) 40 mg DAILY IVP Last administered on 01/27/20at 08:17; Start 01/24/20 at 11:00; Stop 01/27/20 at 14:29; Status DC Iodixanol (Visipaque 320) 100 ml STK-MED ONCE .ROUTE ; Start 01/25/20 at 10:44; Stop 01/25/20 at 10:45; Status DC Lidocaine HCl (Xylocaine-Mpf 1% 2ml Vial) 2 ml STK-MED ONCE .ROUTE ; Start 01/25/20 at 10:44; Stop 01/25/20 at 10:45; Status DC Heparin Sodium/ Sodium Chloride 0 ml @ As Directed STK-MED ONCE .ROUTE ; Start 01/25/20 at 10:44; Stop 01/25/20 at 10:45; Status DC Methylprednisolone Sodium Succinate (SOLU-Medrol 125MG VIAL) 125 mg STK-MED ONCE .ROUTE ; Start 01/25/20 at 10:47; Stop 01/25/20 at 10:47; Status DC Midazolam HCl (Versed) 2 mg STK-MED ONCE .ROUTE ; Start 01/25/20 at 10:47; Stop 01/25/20 at 10:47; Status DC Heparin Sodium (Porcine) (Heparin Sodium) 10,000 unit STK-MED ONCE .ROUTE ; Start 01/25/20 at 10:47; Stop 01/25/20 at 10:47; Status DC Verapamil HCl (Verapamil) 5 mg STK-MED ONCE .ROUTE ; Start 01/25/20 at 10:47; Stop 01/25/20 at 10:47; Status DC Famotidine (Pepcid Vial) 20 mg STK-MED ONCE .ROUTE ; Start 01/25/20 at 10:47; Stop 01/25/20 at 10:48; Status DC Diphenhydramine HCl (Benadryl) 50 mg STK-MED ONCE .ROUTE ; Start 01/25/20 at 10:47; Stop 01/25/20 at 10:48; Status DC Nitroglycerin (Nitroglycerin) 200 mcg STK-MED ONCE .ROUTE ; Start 01/25/20 at 10:48; Stop 01/25/20 at 10:48; Status DC Diphenhydramine HCl (Benadryl) 50 mg STK-MED ONCE .ROUTE ; Start 01/25/20 at 10:52; Stop 01/25/20 at 10:52; Status DC Cyanocobalamin (Vitamin B-12) 1,000 mcg DAILY ONCE IM Last administered on 01/25/20at 14:03; Start 01/25/20 at 11:15; Stop 01/25/20 at 11:16; Status DC Lidocaine HCl (Buffered Lidocaine 1%) 3 ml STK-MED ONCE .ROUTE ; Start 01/25/20 at 11:52; Stop 01/25/20 at 11:53; Status DC Morphine Sulfate (Morphine Sulfate) 10 mg STK-MED ONCE .ROUTE ; Start 01/25/20 at 11:54; Stop 01/25/20 at 11:54; Status DC Midazolam HCl (Versed) 2 mg STK-MED ONCE .ROUTE ; Start 01/25/20 at 11:55; Stop 01/25/20 at 11:55; Status DC Lidocaine HCl (Buffered Lidocaine 1%) 3 ml 1X ONCE IJ Last administered on 01/25/20at 12:21; Start 01/25/20 at 12:15; Stop 01/25/20 at 12:16; Status DC Midazolam HCl (Versed) 2 mg 1X ONCE IV Last administered on 01/25/20at 12:17; Start 01/25/20 at 12:15; Stop 01/25/20 at 12:16; Status DC Morphine Sulfate (Morphine Sulfate) 10 mg 1X ONCE IV Last administered on 01/25/20at 12:17; Start 01/25/20 at 12:15; Stop 01/25/20 at 12:16; Status DC Prednisone (Prednisone) 50 mg 1X ONCE PO Last administered on 01/25/20at 17:07; Start 01/25/20 at 17:00; Stop 01/25/20 at 17:01; Status DC Prednisone (Prednisone) 50 mg 1X ONCE PO Last administered on 01/25/20at 23:57; Start 01/25/20 at 23:59; Stop 01/26/20 at 00:00; Status DC Methylprednisolone Sodium Succinate (SOLU-Medrol 125MG VIAL) 125 mg 1X ONCE IV Last administered on 01/26/20at 09:59; Start 01/26/20 at 08:00; Stop 01/26/20 at 08:01; Status DC Diphenhydramine HCl (Benadryl) 25 mg 1X ONCE IVP Last administered on 01/26/20at 09:59; Start 01/26/20 at 08:00; Stop 01/26/20 at 08:01; Status DC Famotidine (Pepcid Vial) 20 mg 1X ONCE IVP Last administered on 01/26/20at 09:59; Start 01/26/20 at 08:00; Stop 01/26/20 at 08:01; Status DC Sodium Chloride 1,000 ml @ 100 mls/hr Q10H IV Last administered on 01/27/20at 09:42; Start 01/26/20 at 09:45; Stop 01/27/20 at 14:29; Status DC Iodixanol (Visipaque 320) 100 ml STK-MED ONCE .ROUTE ; Start 01/26/20 at 10:43; Stop 01/26/20 at 10:43; Status DC Lidocaine HCl (Lidocaine 1% 20ml Vial) 20 ml STK-MED ONCE .ROUTE ; Start 01/26/20 at 10:43; Stop 01/26/20 at 10:43; Status DC Heparin Sodium/ Sodium Chloride 1,000 ml @ As Directed STK-MED ONCE .ROUTE ; Start 01/26/20 at 10:43; Stop 01/26/20 at 10:43; Status DC Fentanyl Citrate (Fentanyl 2ml Vial) 50 mcg PRN Q3HRS PRN IVP PAIN Last administered on 01/27/20at 11:39; Start 01/26/20 at 10:45; Stop 01/27/20 at 14:29; Status DC Lorazepam (Ativan) 0.5 mg PRN Q6HRS PRN PO ANXIETY / AGITATION Last adminis tered on 01/27/20at 09:59; Start 01/26/20 at 10:45; Stop 01/27/20 at 14:29; Status DC Morphine Sulfate (Morphine Sulfate) 10 mg STK-MED ONCE .ROUTE ; Start 01/26/20 at 11:00; Stop 01/26/20 at 11:00; Status DC Midazolam HCl (Versed) 2 mg STK-MED ONCE .ROUTE ; Start 01/26/20 at 11:00; Stop 01/26/20 at 11:01; Status DC Heparin Sodium (Porcine) (Heparin Sodium) 10,000 unit STK-MED ONCE .ROUTE ; Start 01/26/20 at 11:00; Stop 01/26/20 at 11:02; Status DC Verapamil HCl (Verapamil) 5 mg STK-MED ONCE .ROUTE ; Start 01/26/20 at 11:01; Stop 01/26/20 at 11:02; Status DC Nitroglycerin (Nitroglycerin) 200 mcg STK-MED ONCE .ROUTE ; Start 01/26/20 at 11:01; Stop 01/26/20 at 11:02; Status DC Midazolam HCl (Versed) 2 mg STK-MED ONCE .ROUTE ; Start 01/26/20 at 11:58; Stop 01/26/20 at 11:59; Status DC Nitroglycerin (Nitroglycerin) 200 mcg 1X ONCE IART Last administered on 01/26/20at 12:54; Start 01/26/20 at 12:45; Stop 01/26/20 at 12:46; Status DC Verapamil HCl (Verapamil) 2.5 mg 1X ONCE IART Last administered on 01/26/20at 12:56; Start 01/26/20 at 12:45; Stop 01/26/20 at 12:46; Status DC Heparin Sodium (Porcine) (Heparin Sodium) 2,500 unit 1X ONCE IART Last admi nistered on 01/26/20at 12:56; Start 01/26/20 at 12:45; Stop 01/26/20 at 12:46; Status DC Heparin Sodium/ Sodium Chloride (HEPARIN for ARTERIAL LINE FLUSH) 1,000 unit 1X ONCE IART Last administered on 01/26/20at 12:57; Start 01/26/20 at 12:45; Stop 01/26/20 at 12:46; Status DC Midazolam HCl (Versed) 3 mg 1X ONCE IV Last administered on 01/26/20at 12:54; Start 01/26/20 at 12:45; Stop 01/26/20 at 12:46; Status DC Iodixanol (Visipaque 320) 91 ml 1X ONCE IART Last administered on 01/26/20at 12:55; Start 01/26/20 at 12:45; Stop 01/26/20 at 12:46; Status DC Lidocaine HCl (Lidocaine 1% 20ml Vial) 1.5 ml 1X ONCE INJ Last administered on 01/26/20at 12:53; Start 01/26/20 at 12:45; Stop 01/26/20 at 12:46; Status DC Morphine Sulfate (Morphine Sulfate) 2 mg 1X ONCE IV Last administered on 01/26/20at 12:54; Start 01/26/20 at 12:45; Stop 01/26/20 at 12:46; Status DC Sodium Chloride (Normal Saline Flush) 3 ml QSHIFT PRN IV AFTER MEDS AND BLOOD DRAWS; Start 01/26/20 at 14:15; Stop 01/27/20 at 14:29; Status DC Active Scripts Active Xarelto (Rivaroxaban) 20 Mg Tablet 20 Mg PO DAILY Cardizem Tablet (Diltiazem Hcl) 120 Mg Tablet 240 Mg PO DAILY Reported Hydrochlorothiazide Tablet (Hydrochlorothiazide) 12.5 Mg Tablet 25 Mg PO DAILY Metoprolol Succinate ( Xl ) (Metoprolol Succinate) 100 Mg Tab.er.24h 200 Mg PO DAILY Vitals/I & O Vital Sign - Last 24 Hours 01/26/20 01/26/20 01/26/20 01/26/20 14:47 14:56 15:17 15:24 Temp 97.7 97.7 Pulse 63 61 Resp 22 B/P (MAP) 101/47 (65) 162/71 (101) Pulse Ox 90 92 92 O2 Delivery Nasal Cannula Nasal Cannula Room Air O2 Flow Rate 6.0 6.0 01/26/20 01/26/20 01/26/20 01/26/20 16:15 18:12 18:42 19:29 Temp 98.3 98.3 Pulse 67 Resp 16 18 B/P (MAP) 163/61 (95) Pulse Ox 91 91 91 90 O2 Delivery Room Air Nasal Cannula Nasal Cannula Room Air O2 Flow Rate 3.0 3.0 01/26/20 01/26/20 01/26/20 01/26/20 20:00 20:02 20:16 20:46 Pulse 76 Resp 16 18 B/P (MAP) 147/67 (93) Pulse Ox 97 95 O2 Delivery Nasal Cannula Nasal Cannula Nasal Cannula O2 Flow Rate 2.0 2.0 2.0 01/26/20 01/26/20 01/26/20 01/26/20 20:55 21:04 21:43 22:04 Pulse 76 76 76 B/P (MAP) 175/82 (113) 149/106 (120) 171/70 (103) Pulse Ox 93 O2 Delivery Nasal Cannula O2 Flow Rate 1.0 01/26/20 01/26/20 01/26/20 01/26/20 22:39 22:50 23:18 23:20 Temp 98.0 98.0 Pulse 74 71 68 Resp 18 18 B/P (MAP) 162/71 (101) 184/81 (115) 184/84 (117) Pulse Ox 93 96 O2 Delivery Room Air Nasal Cannula O2 Flow Rate 2.0 01/26/20 01/26/20 01/27/20 01/27/20 23:50 23:50 00:20 00:50 Pulse 66 90 86 Resp 18 B/P (MAP) 177/69 (105) 126/58 (80) 150/68 (95) Pulse Ox 96 O2 Delivery Nasal Cannula O2 Flow Rate 2.0 01/27/20 01/27/20 01/27/20 01/27/20 01:20 01:49 02:18 02:22 Pulse 92 78 70 Resp 16 B/P (MAP) 164/116 (132) 138/77 (97) 158/81 (106) Pulse Ox 96 O2 Delivery Nasal Cannula O2 Flow Rate 2.0 01/27/20 01/27/20 01/27/20 01/27/20 02:48 02:50 03:05 03:09 Temp 99.1 99.1 Pulse 90 71 88 Resp 18 18 B/P (MAP) 113/60 (77) 158/81 (106) 155/67 (96) Pulse Ox 95 95 O2 Delivery Nasal Cannula Room Air O2 Flow Rate 2.0 01/27/20 01/27/20 01/27/20 01/27/20 03:20 03:50 04:25 04:50 Pulse 74 60 98 60 B/P (MAP) 156/72 (100) 127/47 (73) 156/77 (103) 123/66 (85) 01/27/20 01/27/20 01/27/20 01/27/20 05:28 05:31 05:58 07:17 Pulse 60 71 Resp 18 16 B/P (MAP) 139/89 (106) 205/100 (135) Pulse Ox 95 92 O2 Delivery Nasal Cannula Room Air O2 Flow Rate 2.0 01/27/20 01/27/20 01/27/20 01/27/20 07:24 07:24 07:43 08:00 Temp 97.4 97.4 Pulse 72 66 80 Resp 16 B/P (MAP) 170/85 (113) 170/85 (113) 186/87 (120) Pulse Ox 92 O2 Delivery Room Air Nasal Cannula O2 Flow Rate 1.0 01/27/20 01/27/20 01/27/20 01/27/20 08:15 08:17 08:17 08:18 Pulse 88 75 66 B/P (MAP) 207/94 (131) 204/98 (133) 170/85 Pulse Ox 92 O2 Delivery Nasal Cannula O2 Flow Rate 2.0 01/27/20 01/27/20 01/27/20 01/27/20 08:18 08:43 08:47 09:13 Pulse 66 67 69 B/P (MAP) 170/85 183/85 (117) 199/94 (129) Pulse Ox 93 O2 Delivery Nasal Cannula O2 Flow Rate 1.0 01/27/20 01/27/20 01/27/20 01/27/20 09:18 09:37 09:43 10:13 Pulse 80 76 63 B/P (MAP) 199/102 (134) 184/82 (116) 149/74 (99) Pulse Ox 93 O2 Delivery Nasal Cannula O2 Flow Rate 1.0 01/27/20 01/27/20 01/27/20 01/27/20 10:43 11:00 11:01 11:13 Temp 97.5 97.5 Pulse 81 64 69 60 Resp 16 B/P (MAP) 178/95 (122) 142/80 (100) 176/75 (108) 142/80 (100) Pulse Ox 95 O2 Delivery Room Air 01/27/20 01/27/20 01/27/20 01/27/20 11:39 11:43 12:06 12:09 Pulse 60 B/P (MAP) 140/74 (96) Pulse Ox 95 93 93 O2 Delivery Nasal Cannula Nasal Cannula Nasal Cannula O2 Flow Rate 1.0 1.0 1.0 01/27/20 01/27/20 01/27/20 01/27/20 12:13 12:43 13:13 13:43 Pulse 75 59 66 59 B/P (MAP) 144/68 (93) 121/57 (78) 116/65 (82) 123/72 (89) Intake and Output 01/26/20 01/26/20 01/27/20 15:00 23:00 07:00 Intake Total 231 ml 1730 ml Output Total 500 ml 550 ml 550 ml Balance -269 ml 1180 ml -550 ml Justifications for Admission Other Justification MANTHRAVADI,SASHIDHAR MD Jan 27, 2020 14:52
[2020-01-27 21:08] LABS: METHYLMALONIC ACID 334 nmol/L (0-378)
--- NOTE | 2020-02-02 12:07 | PATHOLOGY ---
[facility] Accession Number: [id number] . 01 Material submitted: . PART A: bone - BONE MARROW BIOPSY PART B: bone - BONE MARROW CLOT PART C: bone - BONE MARROW ASPIRATE SLIDES PART D: bone - PERIPHERAL BLOOD SMEARS PART E: bone - BONE MARROW FLOW . 01 Clinical history: . PANCYTOPENIA 69-year-old man with pancytopenia, now with anemia and thrombocytopenia. . 02 Diagnosis: Bone marrow aspirate, biopsy, cell clot and peripheral blood: - Peripheral blood with moderate macrocytic anemia and severe thrombocytopenia with circulating atypical mononuclear cells. 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 (SEE COMMENT). - Trilineage dyspoiesis, diffuse mild to moderate (2-3/4+) reticulin fibrosis and no stainable iron. - See comment. (CLW:[facility] 01/28/2020) [facility] 01/28/2020 1540 Local . 02 Comment: Overall the bone marrow is hypercellular for the patient's age with acute myeloid leukemia. There are 21% blasts by morphology, 29.3% blasts by flow cytometry and approximately 20% blasts by immunohistochemistry. The background trilineage dyspoiesis and mild to moderate reticulin fibrosis raises the possibility of an acute myeloid leukemia with myelodysplasia related changes or a progression from a background myeloproliferative neoplasm/process. Correlation with clinical history, additional laboratory data and cytogenetics is required to exclude a recurrent genetic abnormality and/or a disease defining clinical history. . The case is co-reviewed with Dr. Lydia Webster. The case was discussed preliminarily with Dr. Lezn on 01/28/2020 at 3:20 PM. (CLW:[facility] 01/28/2020) . 02 Electronically signed: . Mikayla Brown MD, Pathologist NPI- [id number] . 01 Gross description: . A. Received in formalin labeled "Juarez Mcclain, A". Received is a fragment of gonzales-red bony tissue measuring 1.5 x 0.6 x 0.2 cm. The specimen is entirely submitted in A1 following immuno-decalcification. . B. Received in formalin labeled "Juarez Mcclain, BM asp clot". Received is blood clot measuring 3.5 x 1.8 x 0.5 cm. The specimen is entirely submitted in B1. ([facility] [place], [place]; 01/25/2020) [facility] 01/25/2020 1814 Local . 02 Microscopic: . CBC Data (01/25/2020): WBC 6,700 /uL, RBC 2.33, hemoglobin 9.2 g/dL, hematocrit 26.6%, MCV 114 fL, MCH 39 pg, MCHC 34 g/dL, RDW 15.0%, and platelet count 27,000 /uL. White blood cell differential (01/24/2020): segs 62%, lymphs 24%, monos 14%. . Peripheral Blood Smear: Cytomorphological examination of the Fox's stained peripheral blood smear confirms the provided data. Red blood cells show moderate macrocytic anemia with mild anisocytosis. No significant poikilocytosis is identified. Occasional dacrocytes (pointed RBCs, teardrop cells) are noted. White blood cells are predominantly segmented neutrophils. Lymphocytes are predominantly small round and mature appearing with condensed chromatin and scant cytoplasm with admixed large granular lymphocytes. Rare atypical mononuclear cells are noted. Platelets are markedly decreased in number and mainly normal in morphology with rare larger platelets noted. . Aspirate Smears: Cytomorphological examination of the Fox's stained aspirate smears shows spicules present. The overall cellularity is approximately 60%. The myeloid to erythroid ratio is mildly increased. Myeloid maturation is abnormal with an increase in immature forms/blasts, nuclear irregularities and cytoplasmic abnormalities. Erythroid maturation is mildly dyserythropoietic with megaloblastoid changes, irregular nuclear contours and nuclear cytoplasmic dyssynchrony. In a 200 cell differential, there are 21% blasts (no Ericka rods are seen), 46% more differentiated myeloids, 14% erythroid precursors, 18% lymphocytes and 1% plasma cells. In a 200 cell differential performed on a touch imprint, there are 15% blasts, 33% more differentiated myeloids, 14% erythroid precursors, 36% lymphocytes and 2% plasma cells. Megakaryocytes are inconspicuous. Rare small/hypolobated forms are noted. No lymphoid aggregates or markedly atypical lymphoid cells are seen. Plasma cells are without atypia. Iron stain of the aspirate smear shows 0/4+ iron positivity with only disrupted spicules present. No ringed sideroblasts are identified. . Core Biopsy and Cell Clot: The decalcified bone marrow core biopsy is adequate. The bone marrow is hypercellular with an overall cellularity of approximately 50-60%. The myeloid to erythroid ratio is 1-2:1. Myeloid and erythroid maturation are dyspoietic. Megakaryocytes are small and inconspicuous. No lymphoid aggregates or markedly atypical lymphoid cells are seen. Bony trabeculae and blood vessels are unremarkable. The cell clot is predominantly blood and peripheral blood elements with a rare small spicule present. . Properly controlled special stains are performed: Block A1: Iron - 0/4+ iron positivity; Reticulin - Diffuse mild to moderate (2-3/4+) reticulin fibrosis. . Block B1: Iron - 0/4+ iron positivity with only a rare small spicule present. . To confirm the flow cytometry findings and to identify cells in a tissue architectural context, properly controlled immunohistochemical stains are performed. . Block A1: CD34 - Mildly increased blasts (15-20%); CD114 - Increased cells (blasts/promyelocytes and mast cells); MPO - Confirms the M/E ratio; Glycophorin A - Confirms the M/E ratio; CD31 - Scattered small megakaryocytes; CD68 - Mildly increased staining. . Flow Cytometry: Flow cytometric immunophenotypic analysis was performed at [facility]. The diagnosis is "29.3% CD34 positive myeloblasts detected, consistent with acute myeloid leukemia." The abnormal cells are CD7 pos (partial), CD13 pos, CD33 pos, CD34 pos, CD38 pos, CD45 pos (dim), CD117 pos, HLA-DR pos, cytoMPO pos (partial); negative for CD2, CD3 (surface and cytoplasmic), CD4, CD5, CD8, CD10, CD11b, CD11c, CD14, CD16, CD19, CD20, gisnUO22, CD56, CD64, otfoCI39b, [id number] and nuclear TDT. There are 24.6% lymphocytes. Of the lymphocytes, there are 80% T-cells with a CD4/CD8 ratio of 0.6 and no aberrant T-cell antigen expression and 14% polyclonal mature B-cells (kappa lambda ratio of 1.3). There are 35.0% dim CD34 positive cells. Within the dim CD45 gate, there are 29.3% CD34 positive cells (blasts). Please see separate flow cytometry report from [facility] ([id number]). . Cytogenetics Analysis: Cytogenetic chromosomal analysis is pending at [facility] ([id number]). (CLW:zainab 01/28/2020) . 02 Pathologist provided ICD-10: D53.9, D69.6, C92.00 . 02 CPT . 166413, 623611, 460774, 659923, 549365, 028476, 499049, 184794, 293280, [id number], [id number] Specimen Comment: A courtesy copy of this report has been sent to [phone] Specimen Comment: [id number], Specimen Comment: Report sent to ,DR LENZ / DR BRAVO Performed at: 01 [facility] [address] [facility] [address], [place] [id number] MD Patric Lozano MD Phone: [phone] Performed at: 02 [facility] [address] [id number] MD Beny Colon MD Phone: [phone]
--- NOTE | 2020-02-11 10:18 | DS ---
DATE OF DISCHARGE: 01/27/2020 SUBJECTIVE: The patient is sitting comfortably, eating his breakfast, in no apparent distress. He denied any chest pain. He already received his pain medication and his IV Lasix. He has an echocardiogram done yesterday, which showed that his left ventricle size is normal. Left ventricular systolic function is within normal range with ejection fraction of 50-55%, has a pacemaker in the right ventricle. There is no significant valvular heart disease. He underwent cardiac catheterization, which basically showed that the patient has severe triple vessel coronary artery disease including critical left main coronary artery stenosis and the recommendation is to be referred to Cardiothoracic surgeon for possible coronary artery bypass graft surgery. PHYSICAL EXAMINATION: GENERAL: When I examined him this morning, he looked well and was clearly in no apparent respiratory distress. He was pale. No jaundice, cyanosis or thyromegaly. No jugular venous distention. No limb edema. VITAL SIGNS: His heart rate was 66, blood pressure was 170/85, temperature 97.4, respiratory rate was 16, and oxygen saturation was 92% on 2 liters of oxygen. HEENT: Showed normocephalic, atraumatic. NECK: Supple. HEART: Showed normal first and second heart sounds. No gallop, rub or murmur. CHEST: Clear to auscultation. No crepitation or rhonchi. ABDOMEN: Distended, soft, nontender. No guarding or rigidity. No organomegaly. All hernial orifice intact. Bowel sounds normal. NEUROLOGIC: He was awake, alert. All his cranial nerves are intact. He moves extremities without difficulty. LABORATORY DATA: Today's labs are still pending at the time of this dictation. As of yesterday, his white cell count was 4400, hemoglobin 8.7, hematocrit 25, MCV 114 and platelet count of 52,000. His chemistry showed a BUN of 67, creatinine 2.8. He has had bone marrow biopsy, the result of which is still pending at the time of this dictation and his kappa lambda chain are elevated and keeping with probably multiple myeloma. ASSESSMENT: 1. Non-ST segment elevation myocardial infarction. The patient is known to have coronary artery disease, status post percutaneous coronary intervention, stent deployment to the left anterior descending. His cardiac catheterization showed severe triple vessel disease including left main coronary artery stenosis. 2. Hypertension, seems to be reasonably controlled. 3. Sick sinus syndrome, status post permanent pacemaker placement. 4. Paroxysmal atrial fibrillation, currently in sinus rhythm. The patient is on Xarelto. 5. The patient has factor V Leiden and history of deep vein thrombosis, for which he is on long-term anticoagulation in the form of Xarelto. 6. Pancytopenia, questionable vitamin B12 deficiency. 7. Acute on chronic kidney injury. 8. Hyperlipidemia. 9. Acute on chronic diastolic congestive heart failure. 10. Questionable multiple myeloma given elevated kappa and lambda chain. His protein electrophoresis still pending at the time of this dictation. Apparently, the plan is for him to be transferred to [facility] to be evaluated by the Cardiothoracic surgeon. KOSTA BRAVO MD DR: FLORY/jm JOB#: [id number] / [id number]
== END 2020-01-27 14:00 | disposition short-term general hospital (02) | DRG 280 ==
LOC: 2 NORTH 16:36
PROVIDERS: ADMIT Internal Medicine; ATTEND Internal Medicine
PROC: 07DR3ZX Extraction of Iliac Bone Marrow, Percutaneous Approach, Diagnostic (ICD-10-PCS; 2020-01-25)
PROC: 4A023N7 Measurement of Cardiac Sampling and Pressure, Left Heart, Percutaneous Approach (ICD-10-PCS; principal; 2020-01-26)
PROC: B2111ZZ Fluoroscopy of Multiple Coronary Arteries using Low Osmolar Contrast (ICD-10-PCS; 2020-01-26)
PROC: 30233R1 Transfusion of Nonautologous Platelets into Peripheral Vein, Percutaneous Approach (ICD-10-PCS; 2020-01-26)
DX: I21.4 Non-ST elevation (NSTEMI) myocardial infarction (principal); I50.43 Acute on chronic combined systolic (congestive) and diastolic (congestive) heart failure; D61.818 Other pancytopenia; I13.0 Hypertensive heart and chronic kidney disease with heart failure and stage 1 through stage 4 chronic kidney disease, or unspecified chronic kidney disease; N17.9 Acute kidney failure, unspecified; K92.1 Melena; D75.89 Other specified diseases of blood and blood-forming organs; E78.5 Hyperlipidemia, unspecified; I25.10 Atherosclerotic heart disease of native coronary artery without angina pectoris; I48.0 Paroxysmal atrial fibrillation; I49.5 Sick sinus syndrome; N18.3 Chronic kidney disease, stage 3 (moderate); Z79.01 Long term (current) use of anticoagulants; Z80.1 Family history of malignant neoplasm of trachea, bronchus and lung; Z82.49 Family history of ischemic heart disease and other diseases of the circulatory system; Z86.711 Personal history of pulmonary embolism; Z86.718 Personal history of other venous thrombosis and embolism; Z86.73 Personal history of transient ischemic attack (TIA), and cerebral infarction without residual deficits; Z87.891 Personal history of nicotine dependence; Z91.041 Radiographic dye allergy status; Z95.0 Presence of cardiac pacemaker; Z95.828 Presence of other vascular implants and grafts; Z95.5 Presence of coronary angioplasty implant and graft; Z90.49 Acquired absence of other specified parts of digestive tract; Z88.6 Allergy status to analgesic agent
CPT/HCPCS: 36415; 38222; 70450; 76770; 77012; 80048; 80053; 80061; 81001; 82525; 82542; 82607; 82728; 83010; 83520; 83540; 83550; 83615; 83735; 83921; 84165; 84443; 84484; 85007; 85025; 85027; 85045; 85520; 85610; 85730; 86850; 86900; 86901; 88184; 88185; 88237; 88305; 88311; 88313; 88341; 88342; 93005; 93306; 93458; 94640; 94760; 99152; 99153; C1769; C1892; J1200; J1644; J1940; J2250; J2270; J2930; J3010; J3420; J3475; J3490; J7030; J7512; P9035; Q9967; G0378; J7613